=== PATIENT | male | born 1935 | race Caucasian/White ===

== ENCOUNTER → 2020-01-26 | Outpatient (CLI) | payer MEDICARE | END | disposition home or self-care (01) | LOC: CVU 08:39 | PROVIDERS: ATTEND Family Medicine | DX: I08.0 Rheumatic disorders of both mitral and aortic valves (principal); R01.1 Cardiac murmur, unspecified | CPT/HCPCS: 93306 ==

== ENCOUNTER → 2020-12-25 | Outpatient (CLI) | payer MEDICARE | END | disposition home or self-care (01) | LOC: CVU 10:01 | PROVIDERS: ATTEND Family Medicine | DX: I08.2 Rheumatic disorders of both aortic and tricuspid valves (principal); R73.03 Prediabetes; I50.9 Heart failure, unspecified | CPT/HCPCS: 93306; 93356 ==

== ENCOUNTER 2021-01-10 07:29 | Day surgery (SDC) | payer MEDICARE ==
[2021-01-10 10:03] LABS: MEAN CORPUSCULAR HEMOGLOBIN 36.6 pg (27.5-34.5); MEAN CORPUSCULAR HGB CONC 32.7 g/dL (33.2-36.2); MEAN PLATELET VOLUME 11.1 fL (7.4-10.4); PLATELET COUNT 60 x10^3/uL (130-400); RED BLOOD COUNT 1.97 x10^6/uL (4.38-5.82); RED CELL DISTRIBUTION WIDTH 22.5 % (9.4-14.8)
[2021-01-10] MEDS ORDERED: LIDOCAINE 1%, 10ML ONE (10:11)
[2021-01-10 10:30] LABS: EOS#(MANUAL) 0.04 x10^3/uL (0.0-0.4); EOS% (MANUAL) 3 % (1-7); LYMPH#(MANUAL) 0.78 x10^3/uL (1-3.4); LYMPHS% (MANUAL) 60 % (22-44); MONOS#(MANUAL) 0.08 x10^3/uL (0.3-2.7); MONOS% (MANUAL) 6 % (2-9); SEGS% (MANUAL) 31 % (42-75)
[2021-01-10] MEDS ORDERED: SODIUM CHLORIDE 0.9% 1,000 ML IV SCH (10:30)
[2021-01-10 10:31] LABS: <PLATELET ESTIMATE> DECREASED; ANISOCYTOSIS 2+; HYPOCHROMIA 1+; LARGE PLATELETS 1+; POLYCHROMASIA 1+; TARGET CELLS 1+
[2021-01-10 10:32] LABS: ACANTHOCYTES 1+; ECHINOCYTES 1+; HOWELL-JOLLY BODIES 1+; OVALOCYTES 1+; SCHISTOCYTES 1+
[2021-01-10] MEDS ORDERED: MIDAZOLAM 1 MG/ML, 5ML ONE (10:36)
[2021-01-10] MEDS ORDERED: NALOXONE 1 MG/ML, 2ML ONE (10:36)
[2021-01-10] MEDS ORDERED: FENTANYL PF 100 MCG/2ML ONE (10:36)
[2021-01-10] MEDS ORDERED: FLUMAZENIL 0.1 MG/1 ML, 5ML ONE (10:36)
== END 2021-01-10 13:00 | disposition home or self-care (01) ==
LOC: OUT 07:29
PROVIDERS: ATTEND Radiology Diagnostic Radiology
DX: D64.9 Anemia, unspecified (principal); D75.81 Myelofibrosis; C85.16 Unspecified B-cell lymphoma, intrapelvic lymph nodes; I10 Essential (primary) hypertension; Z88.1 Allergy status to other antibiotic agents; Z88.2 Allergy status to sulfonamides; Z79.899 Other long term (current) drug therapy; Z98.890 Other specified postprocedural states
CPT/HCPCS: 36415; 38222; 77012; 85025; 85060; 85097; 88305; 88311; 88313; 88341; 88342; 88360; 99156; 99157; J2250; J3010; J2310

== ENCOUNTER 2021-01-18 13:25 | Inpatient (IN) | payer MEDICARE ==
[~2021-01-18] VITALS: Ht 177.8 cm; Wt 64.3 kg
[2021-01-18 14:47] LABS: MEAN CORPUSCULAR HEMOGLOBIN 36.9 pg (27.5-34.5); MEAN CORPUSCULAR HGB CONC 33.1 g/dL (33.2-36.2); MEAN PLATELET VOLUME 11.5 fL (7.4-10.4); RED BLOOD COUNT 1.96 x10^6/uL (4.38-5.82); RED CELL DISTRIBUTION WIDTH 22.9 % (9.4-14.8)
[2021-01-18 14:59] LABS: ALBUMIN 2.1 g/dL (3.4-5.0); ANION GAP 9 mmol/L (5-15); CALCIUM 7.8 mg/dL (8.5-10.1); CHLORIDE 103 mmol/L (98-107)
[2021-01-18 15:07] LABS: ALANINE AMINOTRANSFERASE 45 U/L (12-78); ALKALINE PHOSPHATASE 198 U/L (45-117); BILIRUBIN,TOTAL 1.1 mg/dL (0.2-1.0); CREATININE 0.63 mg/dL (0.7-1.3); TOTAL PROTEIN 6.8 g/dL (6.4-8.2); TROPONIN I < 0.015 ng/mL (0.000-0.045)
[2021-01-18 15:18] LABS: PLATELET COUNT 43 x10^3/uL (130-400)
--- NOTE | 2021-01-18 15:21 | NUR ---
NO ANSWER FROM LOBBY. WILL CALL PATIENT AT NUMBER LISTED
--- NOTE | 2021-01-18 16:14 | NUR ---
PT TO ROOM 9 FROM LOBBY
[2021-01-18 16:45] LABS: SEG#(MANUAL) 0.36 x10^3/uL (1.8-6.8); SEGS% (MANUAL) 28 % (42-75)
[2021-01-18 16:46] LABS: BAND#(MANUAL) 0.09 x10^3/uL; BANDS%(MANUAL) 7 % (0-7); EOS#(MANUAL) 0.04 x10^3/uL (0.0-0.4); EOS% (MANUAL) 3 % (1-7); LYMPH#(MANUAL) 0.77 x10^3/uL (1-3.4); LYMPHS% (MANUAL) 59 % (22-44); MONOS#(MANUAL) 0.01 x10^3/uL (0.3-2.7); MONOS% (MANUAL) 1 % (2-9); REACTIVE LYMPHS # (MANUAL) 0.03 x10^3/uL (0-0); REACTIVE LYMPHS % (MANUAL) 2 % (0-0)
[2021-01-18 16:52] LABS: HYPOCHROMIA 1+; POLYCHROMASIA 1+; TARGET CELLS 1+
[2021-01-18 17:00] LABS: OVALOCYTES 1+
[2021-01-18 17:01] LABS: <PLATELET ESTIMATE> DECREASED; SCHISTOCYTES 1+
[2021-01-18 17:02] LABS: <PLT MORPHOLOGY> NORMAL PLT MORPH
[2021-01-18 17:03] LABS: SPHEROCYTES 1+
--- NOTE | 2021-01-18 17:15 | NUR ---
MD Cruz at bedside for admit assessment. MD notified pt initially had low grade fever of 99.9, wbc 1.3. pt meets sirs criteria but has no source as he has not provided urine yet. pt denies cough, denies dysuria, denies n/v/d. pt a&o, resps even and unlabored, nsr on teletypesetter monitor with no ectopy noted. pt to be admitted for onc workup and possible placement d/t debility. report called to receiving onc ANTONINO Mondragon. pt prompted to provide urine sample. supplies at bedside. MD Cruz declines to order sepsis order set at this time as fever was low grade and no source has been identified yet. ANTONINO Mondragon made aware to notify MD if pt meets sepsis criteria or has positive UTI. MD Cruz aware urine sample has not been provided yet.
[2021-01-18] MEDS ORDERED: vitamin b PO (17:19)
[2021-01-18] MEDS ORDERED: metformin PO (17:19)
[2021-01-18] MEDS ORDERED: ATOR20TA37 PO (17:19)
[2021-01-18] MEDS ORDERED: ASPI-963 PO (17:19)
[2021-01-18] MEDS ORDERED: VIT1TABL34 PO (17:19)
[2021-01-18] MEDS ORDERED: SODIUM CHLORIDE NASAL SPRAY 45ML BOTTLE NAS PRN (17:30)
[2021-01-18] MEDS ORDERED: ONDANSETRON ODT 4 MG PO PRN (17:30)
[2021-01-18] MEDS ORDERED: ACETAMINOPHEN 325 MG TABLET PO PRN (17:30)
[2021-01-18] MEDS ORDERED: MELATONIN 5 MG TABLET PO PRN (17:30)
[2021-01-18] MEDS ORDERED: PHARMACY MAY ADJ FOR RENAL FX MC SCH (17:30)
[2021-01-18] MEDS ORDERED: ONDANSETRON 2MG/ML, 2ML IVPush PRN (17:30)
[2021-01-18 18:40] VITALS: BP 128/75
[2021-01-18] MEDS: NS + 20MEQ KCL 1,000 ML IV SCH (20:12)
[2021-01-18] MEDS: ATORVASTATIN 20 MG TABLET PO SCH (20:19)
[2021-01-18 20:51] LABS: MICROSCOPIC INDICATED
[2021-01-19] VITALS (7 sets, daily range): BP systolic 95–159; BP diastolic 55–80
[2021-01-19 07:20] LABS: ALANINE AMINOTRANSFERASE 44 U/L (12-78); ALBUMIN 1.9 g/dL (3.4-5.0); ANION GAP 9 mmol/L (5-15); CALCIUM 7.9 mg/dL (8.5-10.1); CHLORIDE 107 mmol/L (98-107); CREATININE 0.67 mg/dL (0.7-1.3)
[2021-01-19 07:22] LABS: MEAN CORPUSCULAR HEMOGLOBIN 36.6 pg (27.5-34.5); MEAN CORPUSCULAR HGB CONC 32.6 g/dL (33.2-36.2); MEAN PLATELET VOLUME 10.9 fL (7.4-10.4); RED BLOOD COUNT 1.89 x10^6/uL (4.38-5.82); RED CELL DISTRIBUTION WIDTH 23.4 % (9.4-14.8)
[2021-01-19 07:23] LABS: ALKALINE PHOSPHATASE 221 U/L (45-117); TOTAL PROTEIN 6.2 g/dL (6.4-8.2)
[2021-01-19 07:25] LABS: PLATELET COUNT 39 x10^3/uL (130-400)
[2021-01-19 07:58] LABS: ANISOCYTOSIS 2+; BAND#(MANUAL) 0.01 x10^3/uL; BANDS%(MANUAL) 1 % (0-7); EOS#(MANUAL) 0.04 x10^3/uL (0.0-0.4); EOS% (MANUAL) 3 % (1-7); HYPOCHROMIA 1+; LYMPH#(MANUAL) 0.67 x10^3/uL (1-3.4); LYMPHS% (MANUAL) 56 % (22-44); MONOS#(MANUAL) 0.01 x10^3/uL (0.3-2.7); MONOS% (MANUAL) 1 % (2-9); POLYCHROMASIA 1+; SEG#(MANUAL) 0.47 x10^3/uL (1.8-6.8); SEGS% (MANUAL) 39 % (42-75)
[2021-01-19 07:59] LABS: <PLATELET ESTIMATE> DECREASED; ACANTHOCYTES 1+; ECHINOCYTES 1+; LARGE PLATELETS 1+; TARGET CELLS 1+
[2021-01-19 08:00] LABS: HOWELL-JOLLY BODIES 1+
[2021-01-19 08:02] LABS: SCHISTOCYTES 1+
[2021-01-19 08:42] LABS: ABSOLUTE RETICS # 0.023 x10^6/uL (0.5-1.5); RED BLOOD COUNT 1.82 x10^6/uL (4.38-5.82); RETICULOCYTE COUNT % 1.25 % (0.5-1.5)
[2021-01-19] MEDS: NS + 20MEQ KCL 1,000 ML IV SCH (13:20)
[2021-01-19 16:00] LABS: OCCULT BLOOD POSITIVE (NEGATIVE)
[2021-01-19] MEDS: ATORVASTATIN 20 MG TABLET PO SCH (21:26)
[2021-01-20 00:49] VITALS: BP 120/65
[2021-01-20 05:34] LABS: MEAN CORPUSCULAR HEMOGLOBIN 36.2 pg (27.5-34.5); MEAN CORPUSCULAR HGB CONC 33.8 g/dL (33.2-36.2); MEAN PLATELET VOLUME 11.2 fL (7.4-10.4); RED CELL DISTRIBUTION WIDTH 25.1 % (9.4-14.8)
[2021-01-20 05:37] LABS: ANION GAP 7 mmol/L (5-15); CALCIUM 7.2 mg/dL (8.5-10.1); CHLORIDE 108 mmol/L (98-107); PLATELET COUNT 35 x10^3/uL (130-400)
[2021-01-20 06:08] LABS: SEGS% (MANUAL) 42 % (42-75)
[2021-01-20 06:10] LABS: ANISOCYTOSIS 2+; BAND#(MANUAL) 0.01 x10^3/uL; BANDS%(MANUAL) 1 % (0-7); ECHINOCYTES 1+; HYPOCHROMIA 1+; LYMPH#(MANUAL) 0.68 x10^3/uL (1-3.4); LYMPHS% (MANUAL) 57 % (22-44); POLYCHROMASIA 1+
[2021-01-20 06:11] LABS: <PLATELET ESTIMATE> DECREASED; ACANTHOCYTES 1+; LARGE PLATELETS 1+; SCHISTOCYTES 1+; TARGET CELLS 1+
[2021-01-20 06:12] LABS: HOWELL-JOLLY BODIES 1+
[2021-01-20 07:24] VITALS: BP 119/64
[2021-01-20] MEDS: NS + 20MEQ KCL 1,000 ML IV SCH (07:35)
[2021-01-20 12:05] VITALS: BP 133/69
[2021-01-20] MEDS ORDERED: VANCOMYCIN PER PHARMACY MC PRN (19:00)
[2021-01-20 19:15] VITALS: BP 144/70
[2021-01-20 19:16] VITALS: BP 133/69
[2021-01-20 19:27] LABS: INTERNATIONAL NORMALIZED RATIO 1.24 (0.93-1.1); PROTHROMBIN TIME 13.2 Seconds (9.6-11.5)
[2021-01-20 19:29] VITALS: BP 119/66
[2021-01-20] MEDS ORDERED: PHARMACOKINETIC MONITORING MC PRN (19:30)
[2021-01-20] MEDS: PIPERACILLIN/TAZO 3.375 GM in DEXTROSE 5% 50 ML IV SCH (20:05)
[2021-01-20 20:22] LABS: MICROSCOPIC INDICATED
[2021-01-20] MEDS: VANCOMYCIN 1,400 MG in SODIUM CHLORIDE 0.9% 250 ML IV SCH (20:48)
[2021-01-20] MEDS: ATORVASTATIN 20 MG TABLET PO SCH (21:31)
[2021-01-21] MEDS: PIPERACILLIN/TAZO 3.375 GM in DEXTROSE 5% 50 ML IV SCH ×4 (02:22→20:14)
[2021-01-21 02:24] VITALS: BP 137/72
[2021-01-21 04:57] LABS: % IRON SATURATION 47 % (20-55); IRON LEVEL 51 mcg/dL (65-175); TOTAL IRON BINDING CAPACITY 109 mcg/dL (250-450)
[2021-01-21 05:09] LABS: MEAN CORPUSCULAR HEMOGLOBIN 35.9 pg (27.5-34.5); MEAN CORPUSCULAR HGB CONC 32.9 g/dL (33.2-36.2); MEAN PLATELET VOLUME 10.9 fL (7.4-10.4); RED BLOOD COUNT 2.07 x10^6/uL (4.38-5.82); RED CELL DISTRIBUTION WIDTH 25.5 % (9.4-14.8)
[2021-01-21 05:16] LABS: PLATELET COUNT 33 x10^3/uL (130-400)
[2021-01-21 05:50] LABS: ANISOCYTOSIS 2+; BAND#(MANUAL) 0.01 x10^3/uL; BANDS%(MANUAL) 1 % (0-7); EOS#(MANUAL) 0.01 x10^3/uL (0.0-0.4); EOS% (MANUAL) 1 % (1-7); HYPOCHROMIA 1+; LYMPH#(MANUAL) 0.78 x10^3/uL (1-3.4); LYMPHS% (MANUAL) 65 % (22-44); SEGS% (MANUAL) 33 % (42-75)
[2021-01-21 05:51] LABS: <PLATELET ESTIMATE> DECREASED; ACANTHOCYTES 1+; ECHINOCYTES 1+; HOWELL-JOLLY BODIES 1+; POLYCHROMASIA 1+; SCHISTOCYTES 1+; TARGET CELLS 1+
[2021-01-21 05:52] LABS: LARGE PLATELETS 1+
[2021-01-21 06:19] VITALS: BP 105/63
[2021-01-21 12:28] VITALS: BP 134/74
[2021-01-21] MEDS: VANCOMYCIN 1,400 MG in SODIUM CHLORIDE 0.9% 250 ML IV SCH (14:27)
[2021-01-21 19:01] VITALS: BP 118/68
[2021-01-21] MEDS: ATORVASTATIN 20 MG TABLET PO SCH (20:19)
[2021-01-22 01:33] VITALS: BP 135/72
[2021-01-22] MEDS: PIPERACILLIN/TAZO 3.375 GM in DEXTROSE 5% 50 ML IV SCH ×4 (02:19→22:08)
[2021-01-22 05:23] LABS: MEAN CORPUSCULAR HEMOGLOBIN 36.5 pg (27.5-34.5); MEAN CORPUSCULAR HGB CONC 33.6 g/dL (33.2-36.2); MEAN PLATELET VOLUME 11.1 fL (7.4-10.4); RED BLOOD COUNT 1.99 x10^6/uL (4.38-5.82); RED CELL DISTRIBUTION WIDTH 23.9 % (9.4-14.8)
[2021-01-22 05:29] LABS: ALBUMIN 1.7 g/dL (3.4-5.0); ANION GAP 7 mmol/L (5-15); CALCIUM 7.3 mg/dL (8.5-10.1); CHLORIDE 106 mmol/L (98-107)
[2021-01-22 05:30] LABS: PLATELET COUNT 30 x10^3/uL (130-400)
[2021-01-22 05:32] LABS: ALANINE AMINOTRANSFERASE 63 U/L (12-78); ALKALINE PHOSPHATASE 216 U/L (45-117); CREATININE 0.62 mg/dL (0.7-1.3); TOTAL PROTEIN 5.6 g/dL (6.4-8.2)
[2021-01-22 05:53] LABS: BAND#(MANUAL) 0.03 x10^3/uL; BANDS%(MANUAL) 2 % (0-7); EOS#(MANUAL) 0.02 x10^3/uL (0.0-0.4); EOS% (MANUAL) 1 % (1-7); LYMPH#(MANUAL) 1.01 x10^3/uL (1-3.4); LYMPHS% (MANUAL) 67 % (22-44); MONOS#(MANUAL) 0.02 x10^3/uL (0.3-2.7); MONOS% (MANUAL) 1 % (2-9); SEG#(MANUAL) 0.44 x10^3/uL (1.8-6.8); SEGS% (MANUAL) 29 % (42-75)
[2021-01-22 05:54] LABS: ANISOCYTOSIS 2+; HYPOCHROMIA 1+
[2021-01-22 05:55] LABS: ACANTHOCYTES 1+; ECHINOCYTES 1+; OVALOCYTES 1+; SCHISTOCYTES 1+; TARGET CELLS 1+
[2021-01-22 05:56] LABS: <PLATELET ESTIMATE> DECREASED; HOWELL-JOLLY BODIES 1+; POLYCHROMASIA 1+
[2021-01-22 05:57] LABS: LARGE PLATELETS 1+
[2021-01-22 06:18] VITALS: BP 111/57
[2021-01-22] MEDS: VANCOMYCIN 1,400 MG in SODIUM CHLORIDE 0.9% 250 ML IV SCH ×2 (07:24→07:36)
[2021-01-22] MEDS: FAMOTIDINE 20 MG TABLET PO SCH (09:06)
[2021-01-22] MEDS: ONDANSETRON 8 MG TABLET PO SCH (09:06)
[2021-01-22] MEDS: ALLOPURINOL 300 MG TABLET PO SCH (09:06)
[2021-01-22] MEDS: FILTER 0.22 MICRON IV SCH (10:47)
[2021-01-22] MEDS: SODIUM CHLORIDE 0.9% IV SCH (10:49)
[2021-01-22] MEDS: CLADRIBINE IV SCH (10:49)
[2021-01-22 13:01] VITALS: BP 121/70
[2021-01-22 19:03] VITALS: BP 115/65
[2021-01-22] MEDS: ATORVASTATIN 20 MG TABLET PO SCH (20:58)
[2021-01-23] VITALS (7 sets, daily range): BP systolic 105–138; BP diastolic 58–77
[2021-01-23] MEDS: VANCOMYCIN 1,400 MG in SODIUM CHLORIDE 0.9% 250 ML IV SCH (01:31)
[2021-01-23] MEDS: PIPERACILLIN/TAZO 3.375 GM in DEXTROSE 5% 50 ML IV SCH ×4 (04:00→22:06)
[2021-01-23 05:01] LABS: MEAN CORPUSCULAR HEMOGLOBIN 36.3 pg (27.5-34.5); MEAN CORPUSCULAR HGB CONC 32.9 g/dL (33.2-36.2); MEAN PLATELET VOLUME 11.2 fL (7.4-10.4); RED BLOOD COUNT 1.85 x10^6/uL (4.38-5.82); RED CELL DISTRIBUTION WIDTH 25.2 % (9.4-14.8)
[2021-01-23 05:09] LABS: ALBUMIN 1.5 g/dL (3.4-5.0); ANION GAP 8 mmol/L (5-15); CALCIUM 7.2 mg/dL (8.5-10.1); CHLORIDE 105 mmol/L (98-107)
[2021-01-23 05:15] LABS: ALANINE AMINOTRANSFERASE 61 U/L (12-78); ALKALINE PHOSPHATASE 230 U/L (45-117); BILIRUBIN,TOTAL 0.6 mg/dL (0.2-1.0); CREATININE 0.71 mg/dL (0.7-1.3); PLATELET COUNT 32 x10^3/uL (130-400); TOTAL PROTEIN 5.3 g/dL (6.4-8.2)
[2021-01-23 05:57] LABS: EOS#(MANUAL) 0.04 x10^3/uL (0.0-0.4); EOS% (MANUAL) 3 % (1-7); LYMPH#(MANUAL) 0.76 x10^3/uL (1-3.4); LYMPHS% (MANUAL) 63 % (22-44); MONOS#(MANUAL) 0.01 x10^3/uL (0.3-2.7); MONOS% (MANUAL) 1 % (2-9); SEGS% (MANUAL) 33 % (42-75)
[2021-01-23 05:59] LABS: <PLATELET ESTIMATE> DECREASED; ANISOCYTOSIS 2+; ECHINOCYTES 1+; HOWELL-JOLLY BODIES 1+; HYPOCHROMIA 1+; OVALOCYTES 1+; POLYCHROMASIA 1+; SCHISTOCYTES 1+; TARGET CELLS 1+
[2021-01-23 06:00] LABS: ACANTHOCYTES 1+; LARGE PLATELETS 1+
[2021-01-23] MEDS: ALLOPURINOL 300 MG TABLET PO SCH (07:42)
[2021-01-23] MEDS: ONDANSETRON 8 MG TABLET PO SCH (07:42)
[2021-01-23] MEDS: FAMOTIDINE 20 MG TABLET PO SCH (07:42)
[2021-01-23] MEDS ORDERED: VANCOMYCIN 1,300 MG in SODIUM CHLORIDE 0.9% 250 ML IV SCH (08:30)
[2021-01-23] MEDS: CALCIUM/VITAMIN D3 250-125 TABLET PO SCH ×2 (09:59→21:00)
[2021-01-23] MEDS: SODIUM CHLORIDE 0.9% IV SCH (11:12)
[2021-01-23] MEDS: CLADRIBINE IV SCH (11:12)
[2021-01-23] MEDS: FILTER 0.22 MICRON IV SCH (11:13)
[2021-01-23] MEDS: VANCOMYCIN 1,300 MG in SODIUM CHLORIDE 0.9% 250 ML IV SCH (13:22)
[2021-01-23] MEDS: ATORVASTATIN 20 MG TABLET PO SCH (22:05)
[2021-01-24] MEDS: VANCOMYCIN 1,300 MG in SODIUM CHLORIDE 0.9% 250 ML IV SCH ×2 (00:41→14:25)
[2021-01-24 00:48] VITALS: BP 110/62
[2021-01-24] MEDS: PIPERACILLIN/TAZO 3.375 GM in DEXTROSE 5% 50 ML IV SCH ×4 (04:10→21:43)
[2021-01-24 05:58] LABS: MEAN CORPUSCULAR HEMOGLOBIN 35.4 pg (27.5-34.5); MEAN CORPUSCULAR HGB CONC 33.7 g/dL (33.2-36.2); MEAN PLATELET VOLUME 10.8 fL (7.4-10.4); RED BLOOD COUNT 2.02 x10^6/uL (4.38-5.82); RED CELL DISTRIBUTION WIDTH 26.6 % (9.4-14.8)
[2021-01-24 06:00] LABS: PLATELET COUNT 29 x10^3/uL (130-400)
[2021-01-24 06:11] LABS: ALANINE AMINOTRANSFERASE 75 U/L (12-78); ALBUMIN 1.5 g/dL (3.4-5.0); ANION GAP 7 mmol/L (5-15); CALCIUM 7.4 mg/dL (8.5-10.1); CHLORIDE 105 mmol/L (98-107); CREATININE 0.69 mg/dL (0.7-1.3)
[2021-01-24 06:13] LABS: ALKALINE PHOSPHATASE 259 U/L (45-117); BILIRUBIN,TOTAL 0.9 mg/dL (0.2-1.0); TOTAL PROTEIN 5.3 g/dL (6.4-8.2)
[2021-01-24 06:56] LABS: ACANTHOCYTES 1+; ANISOCYTOSIS 2+; ECHINOCYTES 1+; EOS#(MANUAL) 0.01 x10^3/uL (0.0-0.4); EOS% (MANUAL) 1 % (1-7); HYPOCHROMIA 1+; LYMPH#(MANUAL) 0.53 x10^3/uL (1-3.4); LYMPHS% (MANUAL) 66 % (22-44); MONOS#(MANUAL) 0.01 x10^3/uL (0.3-2.7); MONOS% (MANUAL) 1 % (2-9); OVALOCYTES 1+; POLYCHROMASIA 1+; SEG#(MANUAL) 0.26 x10^3/uL (1.8-6.8); SEGS% (MANUAL) 32 % (42-75)
[2021-01-24 06:57] LABS: SCHISTOCYTES 1+; TARGET CELLS 1+
[2021-01-24 06:59] LABS: <PLATELET ESTIMATE> DECREASED; LARGE PLATELETS 1+
[2021-01-24 07:48] VITALS: BP 132/72
[2021-01-24] MEDS: ONDANSETRON 8 MG TABLET PO SCH (08:32)
[2021-01-24] MEDS: CALCIUM/VITAMIN D3 250-125 TABLET PO SCH ×2 (08:32→20:14)
[2021-01-24] MEDS: FAMOTIDINE 20 MG TABLET PO SCH (08:32)
[2021-01-24] MEDS: ALLOPURINOL 300 MG TABLET PO SCH (08:32)
[2021-01-24] MEDS: FILTER 0.22 MICRON IV SCH (11:44)
[2021-01-24] MEDS: SODIUM CHLORIDE 0.9% IV SCH (11:48)
[2021-01-24] MEDS: CLADRIBINE IV SCH (11:48)
[2021-01-24 13:29] VITALS: BP 127/79
[2021-01-24 19:09] VITALS: BP 148/66
[2021-01-24] MEDS: ACYCLOVIR 200 MG CAPSULE PO SCH (20:13)
[2021-01-24] MEDS: ATORVASTATIN 20 MG TABLET PO SCH (20:14)
[2021-01-24] MEDS: FLUCONAZOLE 100 MG TABLET PO SCH (20:14)
[2021-01-25] VITALS (7 sets, daily range): BP systolic 94–124; BP diastolic 55–83
[2021-01-25] MEDS: VANCOMYCIN 1,300 MG in SODIUM CHLORIDE 0.9% 250 ML IV SCH ×2 (01:59→14:14)
[2021-01-25] MEDS: PIPERACILLIN/TAZO 3.375 GM in DEXTROSE 5% 50 ML IV SCH ×4 (03:39→22:14)
[2021-01-25 06:11] LABS: MEAN CORPUSCULAR HEMOGLOBIN 35.2 pg (27.5-34.5); MEAN CORPUSCULAR HGB CONC 33.2 g/dL (33.2-36.2); MEAN PLATELET VOLUME 10.7 fL (7.4-10.4); RED BLOOD COUNT 1.95 x10^6/uL (4.38-5.82); RED CELL DISTRIBUTION WIDTH 25.7 % (9.4-14.8)
[2021-01-25 06:20] LABS: ALANINE AMINOTRANSFERASE 70 U/L (12-78); ALBUMIN 1.5 g/dL (3.4-5.0); ANION GAP 8 mmol/L (5-15); CALCIUM 7.3 mg/dL (8.5-10.1); CHLORIDE 103 mmol/L (98-107); CREATININE 0.64 mg/dL (0.7-1.3)
[2021-01-25 06:22] LABS: ALKALINE PHOSPHATASE 241 U/L (45-117); BILIRUBIN,TOTAL 0.8 mg/dL (0.2-1.0); TOTAL PROTEIN 5.2 g/dL (6.4-8.2)
[2021-01-25 06:58] LABS: PLATELET COUNT 29 x10^3/uL (130-400)
[2021-01-25 07:02] LABS: ANISOCYTOSIS 2+; EOS#(MANUAL) 0.02 x10^3/uL (0.0-0.4); EOS% (MANUAL) 4 % (1-7); LYMPH#(MANUAL) 0.35 x10^3/uL (1-3.4); LYMPHS% (MANUAL) 69 % (22-44); MONOS#(MANUAL) 0.01 x10^3/uL (0.3-2.7); MONOS% (MANUAL) 1 % (2-9); SEG#(MANUAL) 0.13 x10^3/uL (1.8-6.8); SEGS% (MANUAL) 26 % (42-75)
[2021-01-25 07:03] LABS: ACANTHOCYTES 1+; ECHINOCYTES 1+; HYPOCHROMIA 1+; OVALOCYTES 1+; POLYCHROMASIA 1+; SCHISTOCYTES 1+; TARGET CELLS 1+
[2021-01-25 07:04] LABS: HOWELL-JOLLY BODIES 1+
[2021-01-25 07:05] LABS: <PLATELET ESTIMATE> DECREASED; LARGE PLATELETS 1+
[2021-01-25] MEDS: ACETAMINOPHEN 325 MG TABLET PO PRN (08:11)
[2021-01-25] MEDS: ACYCLOVIR 200 MG CAPSULE PO SCH ×2 (08:20→21:37)
[2021-01-25] MEDS: ONDANSETRON 8 MG TABLET PO SCH (08:20)
[2021-01-25] MEDS: ALLOPURINOL 300 MG TABLET PO SCH (08:20)
[2021-01-25] MEDS: FLUCONAZOLE 100 MG TABLET PO SCH ×2 (08:20→21:37)
[2021-01-25] MEDS: FAMOTIDINE 20 MG TABLET PO SCH (08:20)
[2021-01-25] MEDS: CALCIUM/VITAMIN D3 250-125 TABLET PO SCH ×2 (08:20→21:00)
[2021-01-25] MEDS: FILTER 0.22 MICRON IV SCH (10:00)
[2021-01-25] MEDS: SODIUM CHLORIDE 0.9% IV SCH (11:32)
[2021-01-25] MEDS: CLADRIBINE IV SCH (11:32)
[2021-01-25] MEDS: ATORVASTATIN 20 MG TABLET PO SCH (21:37)
[2021-01-25] MEDS: SENNA/DOCUSATE TABLET PO SCH (21:38)
[2021-01-26 00:49] VITALS: BP 100/60
[2021-01-26] MEDS: PIPERACILLIN/TAZO 3.375 GM in DEXTROSE 5% 50 ML IV SCH ×2 (03:50→09:52)
[2021-01-26 06:10] LABS: ALBUMIN 1.5 g/dL (3.4-5.0); ANION GAP 8 mmol/L (5-15); BASOPHILS % (AUTO) 0 % (0-1); CHLORIDE 104 mmol/L (98-107); EOSINOPHILS % (AUTO) 8 % (1-7); LYMPHOCYTES % (AUTO) 53 % (22-44); MEAN CORPUSCULAR HEMOGLOBIN 34.3 pg (27.5-34.5); MEAN CORPUSCULAR HGB CONC 33.9 g/dL (33.2-36.2); MEAN PLATELET VOLUME 11.1 fL (7.4-10.4); MONOCYTES % (AUTO) 8 % (2-9); NEUTROPHILS % (AUTO) 31 % (42-75); RED BLOOD COUNT 2.28 x10^6/uL (4.38-5.82)
[2021-01-26 06:13] LABS: ALANINE AMINOTRANSFERASE 69 U/L (12-78); ALKALINE PHOSPHATASE 252 U/L (45-117); CREATININE 0.73 mg/dL (0.7-1.3); TOTAL PROTEIN 5.3 g/dL (6.4-8.2)
[2021-01-26 06:14] LABS: PLATELET COUNT 28 x10^3/uL (130-400)
[2021-01-26 06:34] VITALS: BP 111/61
[2021-01-26 07:06] LABS: BAND#(MANUAL) 0.02 x10^3/uL; BANDS%(MANUAL) 8 % (0-7); SEGS% (MANUAL) 32 % (42-75)
[2021-01-26 07:07] LABS: BASOS% (MANUAL) 1 % (0-1); EOS#(MANUAL) 0.01 x10^3/uL (0.0-0.4); EOS% (MANUAL) 3 % (1-7); LYMPH#(MANUAL) 0.17 x10^3/uL (1-3.4); LYMPHS% (MANUAL) 56 % (22-44)
[2021-01-26 07:08] LABS: ANISOCYTOSIS 2+; HYPOCHROMIA 1+; POLYCHROMASIA 1+
[2021-01-26 07:09] LABS: ACANTHOCYTES 1+; ECHINOCYTES 1+; OVALOCYTES 1+; SCHISTOCYTES 1+; TARGET CELLS 1+
[2021-01-26 07:10] LABS: <PLATELET ESTIMATE> DECREASED; LARGE PLATELETS 1+
[2021-01-26] MEDS ORDERED: VANCOMYCIN 1,500 MG in SODIUM CHLORIDE 0.9% 250 ML IV SCH (08:00)
[2021-01-26] MEDS: FLUCONAZOLE 100 MG TABLET PO SCH ×2 (08:31→21:41)
[2021-01-26] MEDS: CALCIUM/VITAMIN D3 250-125 TABLET PO SCH ×2 (08:32→21:42)
[2021-01-26] MEDS: ONDANSETRON 8 MG TABLET PO SCH (08:32)
[2021-01-26] MEDS: ALLOPURINOL 300 MG TABLET PO SCH (08:32)
[2021-01-26] MEDS: FAMOTIDINE 20 MG TABLET PO SCH (08:32)
[2021-01-26] MEDS: ACYCLOVIR 200 MG CAPSULE PO SCH ×2 (08:32→21:42)
[2021-01-26] MEDS: FILTER 0.22 MICRON IV SCH (11:14)
[2021-01-26] MEDS: SODIUM CHLORIDE 0.9% IV SCH (11:15)
[2021-01-26] MEDS: CLADRIBINE IV SCH (11:15)
[2021-01-26 12:05] VITALS: BP 111/55
[2021-01-26 18:58] VITALS: BP 129/71
[2021-01-26] MEDS: SENNA/DOCUSATE TABLET PO SCH (21:41)
[2021-01-26] MEDS: ATORVASTATIN 20 MG TABLET PO SCH (21:41)
[2021-01-27 01:51] VITALS: BP 129/71
[2021-01-27 05:45] LABS: MEAN CORPUSCULAR HEMOGLOBIN 34.7 pg (27.5-34.5); MEAN CORPUSCULAR HGB CONC 34.2 g/dL (33.2-36.2); MEAN PLATELET VOLUME 10.9 fL (7.4-10.4); RED BLOOD COUNT 2.31 x10^6/uL (4.38-5.82); RED CELL DISTRIBUTION WIDTH 24.7 % (9.4-14.8)
[2021-01-27 05:55] LABS: PLATELET COUNT 30 x10^3/uL (130-400)
[2021-01-27 05:59] LABS: ALANINE AMINOTRANSFERASE 61 U/L (12-78); ALBUMIN 1.5 g/dL (3.4-5.0); ANION GAP 8 mmol/L (5-15); CALCIUM 7.3 mg/dL (8.5-10.1); CHLORIDE 101 mmol/L (98-107); CREATININE 0.77 mg/dL (0.7-1.3)
[2021-01-27 06:01] LABS: ALKALINE PHOSPHATASE 276 U/L (45-117); BILIRUBIN,TOTAL 0.7 mg/dL (0.2-1.0); TOTAL PROTEIN 5.5 g/dL (6.4-8.2)
[2021-01-27 06:38] LABS: BAND#(MANUAL) 0.01 x10^3/uL; BANDS%(MANUAL) 3 % (0-7); EOS#(MANUAL) 0.01 x10^3/uL (0.0-0.4); EOS% (MANUAL) 6 % (1-7); LYMPH#(MANUAL) 0.12 x10^3/uL (1-3.4); LYMPHS% (MANUAL) 59 % (22-44); REACTIVE LYMPHS % (MANUAL) 1 % (0-0); SEG#(MANUAL) 0.06 x10^3/uL (1.8-6.8); SEGS% (MANUAL) 31 % (42-75)
[2021-01-27 06:40] LABS: TARGET CELLS 1+
[2021-01-27 06:41] LABS: <PLATELET ESTIMATE> DECREASED; ACANTHOCYTES 1+; ANISOCYTOSIS 2+; ECHINOCYTES 1+; HOWELL-JOLLY BODIES 1+; HYPOCHROMIA 1+; LARGE PLATELETS 1+; OVALOCYTES 1+
[2021-01-27 06:42] LABS: POLYCHROMASIA 1+; SCHISTOCYTES 1+
[2021-01-27 08:55] VITALS: BP 125/62
[2021-01-27] MEDS: FLUCONAZOLE 100 MG TABLET PO SCH ×2 (09:32→20:07)
[2021-01-27] MEDS: ACYCLOVIR 200 MG CAPSULE PO SCH ×2 (09:32→20:07)
[2021-01-27] MEDS: LEVOFLOXACIN 500 MG TABLET PO SCH (09:32)
[2021-01-27] MEDS: ALLOPURINOL 300 MG TABLET PO SCH (09:32)
[2021-01-27] MEDS: CALCIUM/VITAMIN D3 250-125 TABLET PO SCH ×2 (09:33→20:08)
[2021-01-27 12:56] VITALS: BP 145/72
[2021-01-27] MEDS ORDERED: GLYCERIN ADULT SUPP PR ONE (17:00)
[2021-01-27] MEDS ORDERED: GLYCERIN ADULT SUPP PR PRN (17:30)
[2021-01-27 18:43] VITALS: BP 160/89
[2021-01-27] MEDS: ATORVASTATIN 20 MG TABLET PO SCH (20:06)
[2021-01-27] MEDS: SENNA/DOCUSATE TABLET PO SCH (20:07)
[2021-01-28 04:05] VITALS: BP 136/79
[2021-01-28 06:00] LABS: MEAN CORPUSCULAR HEMOGLOBIN 34.6 pg (27.5-34.5); MEAN CORPUSCULAR HGB CONC 33.9 g/dL (33.2-36.2); MEAN PLATELET VOLUME 11.1 fL (7.4-10.4); RED BLOOD COUNT 2.49 x10^6/uL (4.38-5.82)
[2021-01-28 06:06] LABS: CHLORIDE 100 mmol/L (98-107)
[2021-01-28 06:15] LABS: ALANINE AMINOTRANSFERASE 57 U/L (12-78); ALBUMIN 1.6 g/dL (3.4-5.0); ALKALINE PHOSPHATASE 272 U/L (45-117); ANION GAP 6 mmol/L (5-15); BILIRUBIN,TOTAL 1.1 mg/dL (0.2-1.0); CALCIUM 7.8 mg/dL (8.5-10.1); CREATININE 0.52 mg/dL (0.7-1.3); TOTAL PROTEIN 5.9 g/dL (6.4-8.2)
[2021-01-28 06:36] LABS: PLATELET COUNT 28 x10^3/uL (130-400)
[2021-01-28 06:58] LABS: BANDS%(MANUAL) 1 % (0-7); EOS#(MANUAL) 0.01 x10^3/uL (0.0-0.4); EOS% (MANUAL) 5 % (1-7); LYMPH#(MANUAL) 0.06 x10^3/uL (1-3.4); LYMPHS% (MANUAL) 57 % (22-44); MONOS% (MANUAL) 2 % (2-9); SEG#(MANUAL) 0.04 x10^3/uL (1.8-6.8); SEGS% (MANUAL) 35 % (42-75)
[2021-01-28 07:00] LABS: ACANTHOCYTES 1+; ANISOCYTOSIS 2+; ECHINOCYTES 1+; HYPOCHROMIA 1+; OVALOCYTES 1+; POLYCHROMASIA 1+; TARGET CELLS 1+
[2021-01-28 07:01] LABS: <PLATELET ESTIMATE> DECREASED; HOWELL-JOLLY BODIES 1+
[2021-01-28 07:02] LABS: LARGE PLATELETS 1+; MICROCYTOSIS 1+
[2021-01-28 08:28] VITALS: BP 145/75
[2021-01-28] MEDS: CALCIUM/VITAMIN D3 250-125 TABLET PO SCH ×2 (09:00→23:17)
[2021-01-28] MEDS: LEVOFLOXACIN 500 MG TABLET PO SCH (09:18)
[2021-01-28] MEDS: FLUCONAZOLE 100 MG TABLET PO SCH ×2 (09:18→23:16)
[2021-01-28] MEDS: ALLOPURINOL 300 MG TABLET PO SCH (09:18)
[2021-01-28] MEDS: ACYCLOVIR 200 MG CAPSULE PO SCH ×2 (09:18→23:15)
[2021-01-28 13:45] VITALS: BP 149/84
[2021-01-28 19:24] VITALS: BP 133/88
[2021-01-28 20:22] VITALS: BP 148/77
[2021-01-28] MEDS ORDERED: FLUCONAZOLE 200 MG TABLET ONE (23:02)
[2021-01-28] MEDS: METOPROLOL TARTRATE 25 MG TAB PO SCH (23:15)
[2021-01-28] MEDS: ATORVASTATIN 20 MG TABLET PO SCH (23:15)
[2021-01-28] MEDS: SENNA/DOCUSATE TABLET PO SCH (23:15)
[2021-01-28 23:40] VITALS: BP 149/84
[2021-01-29 05:34] VITALS: BP 156/76
[2021-01-29] MEDS: METOPROLOL TARTRATE 25 MG TAB PO SCH (05:36)
[2021-01-29 06:10] LABS: ALBUMIN 1.6 g/dL (3.4-5.0); ANION GAP 5 mmol/L (5-15); CALCIUM 7.6 mg/dL (8.5-10.1); CHLORIDE 101 mmol/L (98-107)
[2021-01-29 06:12] LABS: MEAN CORPUSCULAR HEMOGLOBIN 34.7 pg (27.5-34.5); MEAN CORPUSCULAR HGB CONC 34.2 g/dL (33.2-36.2); MEAN PLATELET VOLUME 10.1 fL (7.4-10.4); RED BLOOD COUNT 2.49 x10^6/uL (4.38-5.82)
[2021-01-29 06:13] LABS: ALANINE AMINOTRANSFERASE 52 U/L (12-78); ALKALINE PHOSPHATASE 267 U/L (45-117); BILIRUBIN,TOTAL 1.2 mg/dL (0.2-1.0); CREATININE 0.47 mg/dL (0.7-1.3)
[2021-01-29 06:35] VITALS: BP 152/74
[2021-01-29 06:35] LABS: PLATELET COUNT 24 x10^3/uL (130-400)
[2021-01-29 07:41] LABS: BANDS%(MANUAL) 1 % (0-7); EOS% (MANUAL) 3 % (1-7); LYMPH#(MANUAL) 0.07 x10^3/uL (1-3.4); LYMPHS% (MANUAL) 67 % (22-44); MONOS#(MANUAL) 0.01 x10^3/uL (0.3-2.7); MONOS% (MANUAL) 8 % (2-9); SEG#(MANUAL) 0.02 x10^3/uL (1.8-6.8); SEGS% (MANUAL) 21 % (42-75)
[2021-01-29 07:42] LABS: ANISOCYTOSIS 2+; HOWELL-JOLLY BODIES 1+; HYPOCHROMIA 1+; MICROCYTOSIS 1+; OVALOCYTES 1+; POLYCHROMASIA 1+; TARGET CELLS 1+
[2021-01-29 07:43] LABS: <PLATELET ESTIMATE> DECREASED
[2021-01-29 07:44] LABS: SCHISTOCYTES 1+
[2021-01-29 07:45] LABS: LARGE PLATELETS 1+
[2021-01-29] MEDS ORDERED: POTASSIUM CHLORIDE 20 MEQ TAB.ER.PRT PO ONE (09:00)
[2021-01-29] MEDS: CALCIUM/VITAMIN D3 250-125 TABLET PO SCH ×2 (10:01→21:37)
[2021-01-29] MEDS: ACYCLOVIR 200 MG CAPSULE PO SCH ×2 (10:02→21:42)
[2021-01-29] MEDS: FLUCONAZOLE 100 MG TABLET PO SCH ×2 (10:02→21:37)
[2021-01-29] MEDS: CARVEDILOL 6.25 MG TABLET PO SCH ×2 (10:02→17:54)
[2021-01-29] MEDS: ALLOPURINOL 300 MG TABLET PO SCH (10:03)
[2021-01-29] MEDS: LEVOFLOXACIN 500 MG TABLET PO SCH (10:03)
[2021-01-29] MEDS: TBO-FILGRASTIM 480 MCG/0.8 ML SQ SCH (10:04)
[2021-01-29 12:03] VITALS: BP 123/74
[2021-01-29 18:39] VITALS: BP 131/74
[2021-01-29] MEDS ORDERED: FLUCONAZOLE 200 MG TABLET ONE (21:33)
[2021-01-29] MEDS: SENNA/DOCUSATE TABLET PO SCH (21:36)
[2021-01-29] MEDS: ATORVASTATIN 20 MG TABLET PO SCH (21:37)
[2021-01-30] VITALS (10 sets, daily range): BP systolic 113–136; BP diastolic 67–76
[2021-01-30] MEDS: CARVEDILOL 6.25 MG TABLET PO SCH ×2 (05:47→18:37)
[2021-01-30 06:12] LABS: MEAN CORPUSCULAR HEMOGLOBIN 34.7 pg (27.5-34.5); MEAN CORPUSCULAR HGB CONC 34.5 g/dL (33.2-36.2); RED BLOOD COUNT 2.26 x10^6/uL (4.38-5.82); RED CELL DISTRIBUTION WIDTH 24.2 % (9.4-14.8)
[2021-01-30 06:16] LABS: ANION GAP 6 mmol/L (5-15); CALCIUM 7.4 mg/dL (8.5-10.1); CHLORIDE 100 mmol/L (98-107); CREATININE 0.48 mg/dL (0.7-1.3)
[2021-01-30 06:30] LABS: PLATELET COUNT 16 x10^3/uL (130-400)
[2021-01-30 08:00] LABS: SEG#(MANUAL) 0.02 x10^3/uL (1.8-6.8); SEGS% (MANUAL) 17 % (42-75)
[2021-01-30 08:01] LABS: BANDS%(MANUAL) 2 % (0-7); EOS#(MANUAL) 0.01 x10^3/uL (0.0-0.4); EOS% (MANUAL) 7 % (1-7); LYMPH#(MANUAL) 0.06 x10^3/uL (1-3.4); LYMPHS% (MANUAL) 61 % (22-44); MONOS#(MANUAL) 0.01 x10^3/uL (0.3-2.7); MONOS% (MANUAL) 13 % (2-9)
[2021-01-30 08:09] LABS: ANISOCYTOSIS 2+; HYPOCHROMIA 1+; MICROCYTOSIS 1+
[2021-01-30 08:10] LABS: <PLATELET ESTIMATE> DECREASED; LARGE PLATELETS 1+; OVALOCYTES 1+; POLYCHROMASIA 1+; SCHISTOCYTES 1+; TARGET CELLS 1+
[2021-01-30] MEDS: FLUCONAZOLE 100 MG TABLET PO SCH ×2 (08:33→20:55)
[2021-01-30] MEDS: LEVOFLOXACIN 500 MG TABLET PO SCH (08:33)
[2021-01-30] MEDS: ACYCLOVIR 200 MG CAPSULE PO SCH ×2 (08:34→20:54)
[2021-01-30] MEDS: CALCIUM/VITAMIN D3 250-125 TABLET PO SCH ×3 (08:35→21:00)
[2021-01-30] MEDS: ALLOPURINOL 300 MG TABLET PO SCH (08:35)
[2021-01-30] MEDS: TBO-FILGRASTIM 480 MCG/0.8 ML SQ SCH (10:19)
[2021-01-30] MEDS ORDERED: SODIUM CHLORIDE 0.9% 250 ML IV ONE (11:30)
[2021-01-30] MEDS: SENNA/DOCUSATE TABLET PO SCH ×2 (20:55→21:00)
[2021-01-30] MEDS: ATORVASTATIN 20 MG TABLET PO SCH (20:55)
[2021-01-31 01:14] VITALS: BP 132/73
[2021-01-31 05:31] VITALS: BP 121/74
[2021-01-31] MEDS: CARVEDILOL 6.25 MG TABLET PO SCH ×2 (05:32→18:09)
[2021-01-31 06:38] VITALS: BP 122/69
[2021-01-31] MEDS: CALCIUM/VITAMIN D3 250-125 TABLET PO SCH ×2 (09:00→20:06)
[2021-01-31] MEDS: ACYCLOVIR 200 MG CAPSULE PO SCH ×2 (09:00→20:05)
[2021-01-31] MEDS: FLUCONAZOLE 100 MG TABLET PO SCH ×2 (09:00→20:06)
[2021-01-31 10:56] LABS: MEAN CORPUSCULAR HEMOGLOBIN 34.7 pg (27.5-34.5); MEAN CORPUSCULAR HGB CONC 34.5 g/dL (33.2-36.2); MEAN PLATELET VOLUME 9.7 fL (7.4-10.4); RED BLOOD COUNT 2.18 x10^6/uL (4.38-5.82); RED CELL DISTRIBUTION WIDTH 23.4 % (9.4-14.8)
[2021-01-31 11:16] LABS: PLATELET COUNT 41 x10^3/uL (130-400)
[2021-01-31 11:49] LABS: BANDS%(MANUAL) 1 % (0-7); EOS% (MANUAL) 3 % (1-7); LYMPH#(MANUAL) 0.08 x10^3/uL (1-3.4); MONOS% (MANUAL) 4 % (2-9); REACTIVE LYMPHS % (MANUAL) 3 % (0-0); SEG#(MANUAL) 0.01 x10^3/uL (1.8-6.8)
[2021-01-31 11:50] LABS: LYMPHS% (MANUAL) 81 % (22-44); SEGS% (MANUAL) 8 % (42-75)
[2021-01-31 11:53] LABS: ANISOCYTOSIS 2+; HYPOCHROMIA 1+; MICROCYTOSIS 1+; OVALOCYTES 1+; POLYCHROMASIA 1+; SCHISTOCYTES 1+; TARGET CELLS 1+
[2021-01-31 11:54] LABS: <PLATELET ESTIMATE> DECREASED; <PLT MORPHOLOGY> NORMAL PLT MORPH; HOWELL-JOLLY BODIES 1+
[2021-01-31] MEDS: ALLOPURINOL 300 MG TABLET PO SCH (12:14)
[2021-01-31] MEDS: LEVOFLOXACIN 500 MG TABLET PO SCH (12:14)
[2021-01-31] MEDS: TBO-FILGRASTIM 480 MCG/0.8 ML SQ SCH (12:35)
[2021-01-31 13:13] VITALS: BP 128/82
[2021-01-31 18:25] VITALS: BP 117/58
[2021-01-31] MEDS: SENNA/DOCUSATE TABLET PO SCH (20:05)
[2021-01-31] MEDS: ATORVASTATIN 20 MG TABLET PO SCH (20:06)
[2021-02-01 00:23] VITALS: BP 116/72
[2021-02-01] MEDS: CARVEDILOL 6.25 MG TABLET PO SCH ×2 (06:00→18:24)
[2021-02-01 06:22] LABS: MEAN CORPUSCULAR HEMOGLOBIN 34.7 pg (27.5-34.5); MEAN PLATELET VOLUME 9.4 fL (7.4-10.4); RED BLOOD COUNT 2.14 x10^6/uL (4.38-5.82)
[2021-02-01 06:25] LABS: PLATELET COUNT 28 x10^3/uL (130-400)
[2021-02-01 06:31] LABS: ALBUMIN 1.6 g/dL (3.4-5.0); ANION GAP 9 mmol/L (5-15); CALCIUM 7.3 mg/dL (8.5-10.1); CHLORIDE 100 mmol/L (98-107); CREATININE 0.52 mg/dL (0.7-1.3)
[2021-02-01 07:09] LABS: MONOS% (MANUAL) 3 % (2-9); REACTIVE LYMPHS % (MANUAL) 4 % (0-0); SEG#(MANUAL) 0.01 x10^3/uL (1.8-6.8)
[2021-02-01 07:12] VITALS: BP 112/65
[2021-02-01 07:16] LABS: BANDS%(MANUAL) 1 % (0-7); EOS% (MANUAL) 3 % (1-7); LYMPH#(MANUAL) 0.08 x10^3/uL (1-3.4); LYMPHS% (MANUAL) 83 % (22-44); SEGS% (MANUAL) 6 % (42-75)
[2021-02-01 07:19] LABS: ANISOCYTOSIS 2+; HYPOCHROMIA 1+; MICROCYTOSIS 1+; OVALOCYTES 1+
[2021-02-01 07:20] LABS: HOWELL-JOLLY BODIES 1+
[2021-02-01 07:25] LABS: SCHISTOCYTES 1+; TARGET CELLS 1+
[2021-02-01 07:26] LABS: <PLATELET ESTIMATE> DECREASED; <PLT MORPHOLOGY> NORMAL PLT MORPH
[2021-02-01] MEDS: CALCIUM/VITAMIN D3 250-125 TABLET PO SCH ×2 (09:00→21:00)
[2021-02-01] MEDS: ACYCLOVIR 200 MG CAPSULE PO SCH ×2 (10:15→21:00)
[2021-02-01] MEDS: ALLOPURINOL 300 MG TABLET PO SCH (10:15)
[2021-02-01] MEDS: FLUCONAZOLE 100 MG TABLET PO SCH ×2 (10:15→21:00)
[2021-02-01] MEDS: POTASSIUM CHLORIDE 20 MEQ TAB.ER.PRT PO SCH ×2 (10:15→22:34)
[2021-02-01] MEDS: LEVOFLOXACIN 500 MG TABLET PO SCH (10:18)
[2021-02-01] MEDS: TBO-FILGRASTIM 480 MCG/0.8 ML SQ SCH (11:01)
[2021-02-01 13:28] VITALS: BP 129/72
[2021-02-01 18:48] VITALS: BP 149/81
[2021-02-01] MEDS: SENNA/DOCUSATE TABLET PO SCH (21:00)
[2021-02-01] MEDS: ATORVASTATIN 20 MG TABLET PO SCH (21:00)
[2021-02-02] VITALS (7 sets, daily range): BP systolic 118–136; BP diastolic 69–78
[2021-02-02] MEDS: CARVEDILOL 6.25 MG TABLET PO SCH ×2 (06:00→18:00)
[2021-02-02 06:11] LABS: MEAN CORPUSCULAR HEMOGLOBIN 34.6 pg (27.5-34.5); MEAN CORPUSCULAR HGB CONC 33.9 g/dL (33.2-36.2); MEAN PLATELET VOLUME 9.4 fL (7.4-10.4); RED BLOOD COUNT 2.07 x10^6/uL (4.38-5.82); RED CELL DISTRIBUTION WIDTH 24.5 % (9.4-14.8)
[2021-02-02 06:19] LABS: ALBUMIN 1.5 g/dL (3.4-5.0); ANION GAP 6 mmol/L (5-15); CALCIUM 7.2 mg/dL (8.5-10.1); CHLORIDE 102 mmol/L (98-107)
[2021-02-02 06:20] LABS: CREATININE 0.46 mg/dL (0.7-1.3)
[2021-02-02 06:31] LABS: PLATELET COUNT 19 x10^3/uL (130-400)
[2021-02-02 06:55] LABS: EOS% (MANUAL) 4 % (1-7); LYMPH#(MANUAL) 0.08 x10^3/uL (1-3.4); LYMPHS% (MANUAL) 80 % (22-44); MONOS#(MANUAL) 0.01 x10^3/uL (0.3-2.7); MONOS% (MANUAL) 10 % (2-9); SEG#(MANUAL) 0.01 x10^3/uL (1.8-6.8); SEGS% (MANUAL) 6 % (42-75)
[2021-02-02 06:56] LABS: <PLATELET ESTIMATE> DECREASED; <PLT MORPHOLOGY> NORMAL PLT MORPH; ANISOCYTOSIS 2+; HOWELL-JOLLY BODIES 1+; HYPOCHROMIA 1+; MICROCYTOSIS 1+; OVALOCYTES 1+; SCHISTOCYTES 1+; TARGET CELLS 1+
[2021-02-02] MEDS: CALCIUM/VITAMIN D3 250-125 TABLET PO SCH ×2 (09:00→21:00)
[2021-02-02] MEDS: ACYCLOVIR 200 MG CAPSULE PO SCH ×2 (10:12→21:12)
[2021-02-02] MEDS: FLUCONAZOLE 100 MG TABLET PO SCH ×2 (10:13→21:12)
[2021-02-02] MEDS: POTASSIUM CHLORIDE 20 MEQ TAB.ER.PRT PO SCH ×2 (10:13→21:12)
[2021-02-02] MEDS: LEVOFLOXACIN 500 MG TABLET PO SCH (10:13)
[2021-02-02] MEDS: ALLOPURINOL 300 MG TABLET PO SCH (10:13)
[2021-02-02] MEDS: TBO-FILGRASTIM 480 MCG/0.8 ML SQ SCH (10:50)
[2021-02-02] MEDS: ACETAMINOPHEN 325 MG TABLET PO PRN (18:00)
[2021-02-02] MEDS: ATORVASTATIN 20 MG TABLET PO SCH (21:11)
[2021-02-02] MEDS: SENNA/DOCUSATE TABLET PO SCH (21:12)
[2021-02-03 02:20] VITALS: BP 134/88
[2021-02-03] MEDS: CARVEDILOL 6.25 MG TABLET PO SCH ×2 (06:00→18:30)
[2021-02-03 07:11] VITALS: BP 135/72
[2021-02-03] MEDS: FLUCONAZOLE 100 MG TABLET PO SCH ×2 (08:35→22:35)
[2021-02-03] MEDS: POTASSIUM CHLORIDE 20 MEQ TAB.ER.PRT PO SCH ×2 (08:35→22:35)
[2021-02-03] MEDS: ALLOPURINOL 300 MG TABLET PO SCH (08:35)
[2021-02-03] MEDS: LEVOFLOXACIN 500 MG TABLET PO SCH (08:35)
[2021-02-03] MEDS: CALCIUM/VITAMIN D3 250-125 TABLET PO SCH ×2 (08:35→22:36)
[2021-02-03] MEDS: ACYCLOVIR 200 MG CAPSULE PO SCH ×2 (08:36→22:35)
[2021-02-03] MEDS: TBO-FILGRASTIM 480 MCG/0.8 ML SQ SCH (10:36)
[2021-02-03 12:36] VITALS: BP 138/76
[2021-02-03 19:04] VITALS: BP 144/87
[2021-02-03] MEDS: ATORVASTATIN 20 MG TABLET PO SCH (22:35)
[2021-02-03] MEDS: SENNA/DOCUSATE TABLET PO SCH (22:35)
[2021-02-04] VITALS (8 sets, daily range): BP systolic 123–155; BP diastolic 76–82
[2021-02-04] MEDS: CARVEDILOL 6.25 MG TABLET PO SCH ×2 (05:53→17:59)
[2021-02-04] MEDS: CALCIUM/VITAMIN D3 250-125 TABLET PO SCH ×2 (09:00→21:00)
[2021-02-04] MEDS: LEVOFLOXACIN 500 MG TABLET PO SCH (09:15)
[2021-02-04] MEDS: ALLOPURINOL 300 MG TABLET PO SCH (09:15)
[2021-02-04] MEDS: ACYCLOVIR 200 MG CAPSULE PO SCH ×2 (09:15→21:59)
[2021-02-04] MEDS: FLUCONAZOLE 100 MG TABLET PO SCH ×2 (09:15→22:00)
[2021-02-04] MEDS: TBO-FILGRASTIM 480 MCG/0.8 ML SQ SCH (09:16)
[2021-02-04] MEDS: SENNA/DOCUSATE TABLET PO SCH (21:00)
[2021-02-04] MEDS: ATORVASTATIN 20 MG TABLET PO SCH (21:59)
[2021-02-05] VITALS (7 sets, daily range): BP systolic 130–158; BP diastolic 70–91
[2021-02-05 05:16] LABS: MEAN CORPUSCULAR HGB CONC 33.8 g/dL (33.2-36.2); MEAN PLATELET VOLUME 10.3 fL (7.4-10.4); PLATELET COUNT 52 x10^3/uL (130-400); RED BLOOD COUNT 1.84 x10^6/uL (4.38-5.82); RED CELL DISTRIBUTION WIDTH 23.9 % (9.4-14.8)
[2021-02-05 05:20] LABS: ALBUMIN 1.7 g/dL (3.4-5.0); ANION GAP 3 mmol/L (5-15); CALCIUM 7.4 mg/dL (8.5-10.1); CHLORIDE 106 mmol/L (98-107); CREATININE 0.49 mg/dL (0.7-1.3)
[2021-02-05] MEDS: CARVEDILOL 6.25 MG TABLET PO SCH ×2 (05:53→17:48)
[2021-02-05 06:36] LABS: EOS% (MANUAL) 4 % (1-7); LYMPH#(MANUAL) 0.08 x10^3/uL (1-3.4); LYMPHS% (MANUAL) 82 % (22-44); MONOS% (MANUAL) 4 % (2-9); REACTIVE LYMPHS % (MANUAL) 2 % (0-0); SEG#(MANUAL) 0.01 x10^3/uL (1.8-6.8); SEGS% (MANUAL) 8 % (42-75)
[2021-02-05 06:38] LABS: ANISOCYTOSIS 2+; HYPOCHROMIA 1+; MICROCYTOSIS 1+; TARGET CELLS 1+
[2021-02-05 06:39] LABS: <PLATELET ESTIMATE> DECREASED; HOWELL-JOLLY BODIES 1+; OVALOCYTES 1+; SCHISTOCYTES 1+
[2021-02-05 06:40] LABS: <PLT MORPHOLOGY> NORMAL PLT MORPH
[2021-02-05] MEDS: LEVOFLOXACIN 500 MG TABLET PO SCH (10:08)
[2021-02-05] MEDS: FLUCONAZOLE 100 MG TABLET PO SCH ×2 (10:08→21:17)
[2021-02-05] MEDS: CALCIUM/VITAMIN D3 250-125 TABLET PO SCH ×2 (10:09→21:17)
[2021-02-05] MEDS: ACYCLOVIR 200 MG CAPSULE PO SCH ×2 (10:09→21:17)
[2021-02-05] MEDS: TBO-FILGRASTIM 480 MCG/0.8 ML SQ SCH (10:09)
[2021-02-05] MEDS: ALLOPURINOL 300 MG TABLET PO SCH (10:09)
[2021-02-05] MEDS: SENNA/DOCUSATE TABLET PO SCH (21:00)
[2021-02-05] MEDS: ATORVASTATIN 20 MG TABLET PO SCH (21:17)
[2021-02-06 02:02] VITALS: BP 157/87
[2021-02-06 05:18] VITALS: BP 154/86
[2021-02-06] MEDS: CARVEDILOL 6.25 MG TABLET PO SCH ×2 (05:19→17:41)
[2021-02-06] MEDS ORDERED: CATHFLO-ALTEPLASE 2 MG/2 ML CATHFLUSH ONE (05:30)
[2021-02-06 05:42] LABS: MEAN CORPUSCULAR HEMOGLOBIN 34.6 pg (27.5-34.5); MEAN CORPUSCULAR HGB CONC 34.4 g/dL (33.2-36.2); MEAN PLATELET VOLUME 10.5 fL (7.4-10.4); RED CELL DISTRIBUTION WIDTH 23.3 % (9.4-14.8)
[2021-02-06 05:46] LABS: PLATELET COUNT 29 x10^3/uL (130-400)
[2021-02-06 05:50] LABS: ALBUMIN 1.7 g/dL (3.4-5.0); ANION GAP 6 mmol/L (5-15); CALCIUM 7.6 mg/dL (8.5-10.1); CHLORIDE 106 mmol/L (98-107)
[2021-02-06 05:52] LABS: CREATININE 0.46 mg/dL (0.7-1.3)
[2021-02-06 06:39] LABS: EOS% (MANUAL) 2 % (1-7); LYMPH#(MANUAL) 0.09 x10^3/uL (1-3.4); LYMPHS% (MANUAL) 86 % (22-44); SEG#(MANUAL) 0.01 x10^3/uL (1.8-6.8); SEGS% (MANUAL) 12 % (42-75)
[2021-02-06 06:40] LABS: <PLATELET ESTIMATE> DECREASED; <PLT MORPHOLOGY> NORMAL PLT MORPH; ANISOCYTOSIS 2+; HYPOCHROMIA 1+; MICROCYTOSIS 1+; OVALOCYTES 1+; SCHISTOCYTES 1+; TARGET CELLS 1+
[2021-02-06 06:45] LABS: HOWELL-JOLLY BODIES 1+
[2021-02-06 06:47] VITALS: BP 137/72
[2021-02-06] MEDS: ACYCLOVIR 200 MG CAPSULE PO SCH ×2 (09:42→21:10)
[2021-02-06] MEDS: CALCIUM/VITAMIN D3 250-125 TABLET PO SCH ×2 (09:42→21:10)
[2021-02-06] MEDS: TBO-FILGRASTIM 480 MCG/0.8 ML SQ SCH (09:43)
[2021-02-06] MEDS: FLUCONAZOLE 100 MG TABLET PO SCH ×2 (09:43→21:10)
[2021-02-06] MEDS: LEVOFLOXACIN 500 MG TABLET PO SCH (09:44)
[2021-02-06 12:29] VITALS: BP 177/87
[2021-02-06 12:40] VITALS: BP 143/75
[2021-02-06 19:07] VITALS: BP 150/75
[2021-02-06] MEDS: SENNA/DOCUSATE TABLET PO SCH (21:00)
[2021-02-06] MEDS: ATORVASTATIN 20 MG TABLET PO SCH (21:10)
[2021-02-07] VITALS (7 sets, daily range): BP systolic 122–158; BP diastolic 69–90
[2021-02-07 05:30] LABS: MEAN CORPUSCULAR HEMOGLOBIN 34.6 pg (27.5-34.5); MEAN CORPUSCULAR HGB CONC 34.6 g/dL (33.2-36.2); MEAN PLATELET VOLUME 10.6 fL (7.4-10.4); RED CELL DISTRIBUTION WIDTH 23.1 % (9.4-14.8)
[2021-02-07 05:43] LABS: ALANINE AMINOTRANSFERASE 60 U/L (12-78); ALBUMIN 1.8 g/dL (3.4-5.0); ANION GAP 5 mmol/L (5-15); CALCIUM 7.7 mg/dL (8.5-10.1); CHLORIDE 108 mmol/L (98-107); CREATININE 0.62 mg/dL (0.7-1.3)
[2021-02-07 05:45] LABS: ALKALINE PHOSPHATASE 311 U/L (45-117); TOTAL PROTEIN 5.9 g/dL (6.4-8.2)
[2021-02-07] MEDS: CARVEDILOL 6.25 MG TABLET PO SCH ×2 (06:09→18:26)
[2021-02-07 06:16] LABS: PLATELET COUNT 18 x10^3/uL (130-400)
[2021-02-07 06:34] LABS: BANDS%(MANUAL) 2 % (0-7); EOS% (MANUAL) 4 % (1-7); LYMPH#(MANUAL) 0.08 x10^3/uL (1-3.4); LYMPHS% (MANUAL) 76 % (22-44); SEG#(MANUAL) 0.02 x10^3/uL (1.8-6.8); SEGS% (MANUAL) 18 % (42-75)
[2021-02-07 06:35] LABS: ANISOCYTOSIS 2+; HOWELL-JOLLY BODIES 1+; HYPOCHROMIA 1+; MICROCYTOSIS 1+; OVALOCYTES 1+; SCHISTOCYTES 1+; TARGET CELLS 1+
[2021-02-07 06:36] LABS: <PLATELET ESTIMATE> DECREASED; <PLT MORPHOLOGY> NORMAL PLT MORPH
[2021-02-07] MEDS: CALCIUM/VITAMIN D3 250-125 TABLET PO SCH ×2 (08:05→21:00)
[2021-02-07] MEDS: FLUCONAZOLE 100 MG TABLET PO SCH ×2 (08:05→21:00)
[2021-02-07] MEDS: TBO-FILGRASTIM 480 MCG/0.8 ML SQ SCH (08:06)
[2021-02-07] MEDS: ACYCLOVIR 200 MG CAPSULE PO SCH ×2 (08:06→21:00)
[2021-02-07] MEDS: LEVOFLOXACIN 500 MG TABLET PO SCH (08:06)
[2021-02-07] MEDS ORDERED: MAGNESIUM SULFATE PMX 2GM/50ML 50 ML IV ONE (08:30)
[2021-02-07] MEDS: ATORVASTATIN 20 MG TABLET PO SCH (21:00)
[2021-02-07] MEDS: SENNA/DOCUSATE TABLET PO SCH (21:00)
[2021-02-08 00:20] VITALS: BP 154/81
[2021-02-08] MEDS: CARVEDILOL 6.25 MG TABLET PO SCH ×2 (05:29→19:16)
[2021-02-08 05:35] LABS: MEAN CORPUSCULAR HEMOGLOBIN 34.2 pg (27.5-34.5); MEAN CORPUSCULAR HGB CONC 34.2 g/dL (33.2-36.2); MEAN PLATELET VOLUME 10.5 fL (7.4-10.4); RED CELL DISTRIBUTION WIDTH 21.8 % (9.4-14.8)
[2021-02-08 05:42] LABS: PLATELET COUNT 39 x10^3/uL (130-400)
[2021-02-08 05:43] LABS: ANION GAP 5 mmol/L (5-15); CALCIUM 7.7 mg/dL (8.5-10.1); CHLORIDE 109 mmol/L (98-107)
[2021-02-08 05:44] LABS: CREATININE 0.51 mg/dL (0.7-1.3)
[2021-02-08 06:24] LABS: BANDS%(MANUAL) 2 % (0-7); EOS% (MANUAL) 3 % (1-7); LYMPH#(MANUAL) 0.08 x10^3/uL (1-3.4); LYMPHS% (MANUAL) 76 % (22-44); MONOS% (MANUAL) 2 % (2-9); SEG#(MANUAL) 0.02 x10^3/uL (1.8-6.8); SEGS% (MANUAL) 17 % (42-75)
[2021-02-08 06:25] LABS: <PLATELET ESTIMATE> DECREASED; <PLT MORPHOLOGY> NORMAL PLT MORPH; ANISOCYTOSIS 2+; HOWELL-JOLLY BODIES 1+; HYPOCHROMIA 1+; MICROCYTOSIS 1+; OVALOCYTES 1+; SCHISTOCYTES 1+; TARGET CELLS 1+
[2021-02-08 07:36] VITALS: BP 146/78
[2021-02-08] MEDS: CALCIUM/VITAMIN D3 250-125 TABLET PO SCH ×2 (09:31→19:38)
[2021-02-08] MEDS: ACYCLOVIR 200 MG CAPSULE PO SCH ×2 (09:32→19:37)
[2021-02-08] MEDS: LEVOFLOXACIN 500 MG TABLET PO SCH (09:33)
[2021-02-08] MEDS: FLUCONAZOLE 100 MG TABLET PO SCH ×2 (09:34→19:37)
[2021-02-08] MEDS: TBO-FILGRASTIM 480 MCG/0.8 ML SQ SCH (09:35)
[2021-02-08 12:59] VITALS: BP 161/81
[2021-02-08 19:33] VITALS: BP 140/80
[2021-02-08] MEDS: ATORVASTATIN 20 MG TABLET PO SCH (19:38)
[2021-02-08] MEDS: SENNA/DOCUSATE TABLET PO SCH (19:39)
[2021-02-09] VITALS (8 sets, daily range): BP systolic 131–158; BP diastolic 76–91
[2021-02-09] MEDS: CARVEDILOL 6.25 MG TABLET PO SCH ×2 (05:52→17:08)
[2021-02-09 06:16] LABS: MEAN CORPUSCULAR HEMOGLOBIN 34.3 pg (27.5-34.5); MEAN CORPUSCULAR HGB CONC 34.4 g/dL (33.2-36.2); MEAN PLATELET VOLUME 10.6 fL (7.4-10.4); RED BLOOD COUNT 2.08 x10^6/uL (4.38-5.82); RED CELL DISTRIBUTION WIDTH 22.7 % (9.4-14.8)
[2021-02-09 06:49] LABS: PLATELET COUNT 18 x10^3/uL (130-400)
[2021-02-09 08:17] LABS: SEG#(MANUAL) 0.02 x10^3/uL (1.8-6.8); SEGS% (MANUAL) 18 % (42-75)
[2021-02-09 08:18] LABS: BANDS%(MANUAL) 3 % (0-7); EOS% (MANUAL) 4 % (1-7); LYMPH#(MANUAL) 0.07 x10^3/uL (1-3.4); LYMPHS% (MANUAL) 70 % (22-44); MONOS#(MANUAL) 0.01 x10^3/uL (0.3-2.7); MONOS% (MANUAL) 5 % (2-9)
[2021-02-09 08:19] LABS: ANISOCYTOSIS 2+; HYPOCHROMIA 1+; MICROCYTOSIS 1+; TARGET CELLS 1+
[2021-02-09 08:20] LABS: <PLATELET ESTIMATE> DECREASED; <PLT MORPHOLOGY> NORMAL PLT MORPH; HOWELL-JOLLY BODIES 1+; OVALOCYTES 1+; SCHISTOCYTES 1+
[2021-02-09] MEDS: FLUCONAZOLE 100 MG TABLET PO SCH ×2 (09:47→21:17)
[2021-02-09] MEDS: ACYCLOVIR 200 MG CAPSULE PO SCH ×2 (09:47→21:22)
[2021-02-09] MEDS: LEVOFLOXACIN 500 MG TABLET PO SCH (09:47)
[2021-02-09] MEDS: CALCIUM/VITAMIN D3 250-125 TABLET PO SCH ×2 (09:47→21:18)
[2021-02-09] MEDS: TBO-FILGRASTIM 480 MCG/0.8 ML SQ SCH (10:17)
[2021-02-09] MEDS: ATORVASTATIN 20 MG TABLET PO SCH (21:17)
[2021-02-09] MEDS: SENNA/DOCUSATE TABLET PO SCH (21:18)
[2021-02-10] VITALS (8 sets, daily range): BP systolic 136–164; BP diastolic 61–89
[2021-02-10 05:09] LABS: MEAN CORPUSCULAR HEMOGLOBIN 34.2 pg (27.5-34.5); MEAN CORPUSCULAR HGB CONC 33.9 g/dL (33.2-36.2); MEAN PLATELET VOLUME 10.3 fL (7.4-10.4); RED BLOOD COUNT 1.98 x10^6/uL (4.38-5.82); RED CELL DISTRIBUTION WIDTH 22.7 % (9.4-14.8)
[2021-02-10 05:12] LABS: PLATELET COUNT 39 x10^3/uL (130-400)
[2021-02-10 06:10] LABS: BANDS%(MANUAL) 4 % (0-7); EOS#(MANUAL) 0.01 x10^3/uL (0.0-0.4); EOS% (MANUAL) 5 % (1-7); LYMPH#(MANUAL) 0.07 x10^3/uL (1-3.4); LYMPHS% (MANUAL) 67 % (22-44); MONOS% (MANUAL) 2 % (2-9); SEG#(MANUAL) 0.02 x10^3/uL (1.8-6.8); SEGS% (MANUAL) 22 % (42-75)
[2021-02-10 06:12] LABS: ANISOCYTOSIS 2+; HOWELL-JOLLY BODIES 1+; HYPOCHROMIA 1+; MICROCYTOSIS 1+; OVALOCYTES 1+; TARGET CELLS 1+
[2021-02-10 06:13] LABS: <PLATELET ESTIMATE> DECREASED; <PLT MORPHOLOGY> NORMAL PLT MORPH
[2021-02-10] MEDS: CARVEDILOL 6.25 MG TABLET PO SCH ×2 (06:17→17:39)
[2021-02-10] MEDS: FLUCONAZOLE 100 MG TABLET PO SCH ×2 (07:50→20:36)
[2021-02-10] MEDS: ACYCLOVIR 200 MG CAPSULE PO SCH ×2 (07:50→20:37)
[2021-02-10] MEDS: LEVOFLOXACIN 500 MG TABLET PO SCH (07:50)
[2021-02-10] MEDS: CALCIUM/VITAMIN D3 250-125 TABLET PO SCH ×2 (07:50→20:38)
[2021-02-10] MEDS: TBO-FILGRASTIM 480 MCG/0.8 ML SQ SCH (08:39)
[2021-02-10] MEDS: ACETAMINOPHEN 325 MG TABLET PO PRN (11:07)
[2021-02-10] MEDS: SENNA/DOCUSATE TABLET PO SCH (20:37)
[2021-02-10] MEDS: ATORVASTATIN 20 MG TABLET PO SCH (20:38)
[2021-02-11 00:50] VITALS: BP 140/78
[2021-02-11] MEDS: CARVEDILOL 6.25 MG TABLET PO SCH ×2 (06:25→16:58)
[2021-02-11 06:51] LABS: ALANINE AMINOTRANSFERASE 62 U/L (12-78); ANION GAP 3 mmol/L (5-15); CALCIUM 7.6 mg/dL (8.5-10.1); CHLORIDE 110 mmol/L (98-107); CREATININE 0.51 mg/dL (0.7-1.3)
[2021-02-11 06:53] LABS: ALKALINE PHOSPHATASE 268 U/L (45-117); TOTAL PROTEIN 6.3 g/dL (6.4-8.2)
[2021-02-11 07:27] LABS: MEAN CORPUSCULAR HEMOGLOBIN 34.3 pg (27.5-34.5); MEAN CORPUSCULAR HGB CONC 34.7 g/dL (33.2-36.2); MEAN PLATELET VOLUME 11.2 fL (7.4-10.4); RED BLOOD COUNT 2.19 x10^6/uL (4.38-5.82); RED CELL DISTRIBUTION WIDTH 21.2 % (9.4-14.8)
[2021-02-11 07:44] LABS: PLATELET COUNT 22 x10^3/uL (130-400)
[2021-02-11 07:47] LABS: ANISOCYTOSIS 2+; BANDS%(MANUAL) 1 % (0-7); EOS% (MANUAL) 2 % (1-7); LYMPH#(MANUAL) 0.07 x10^3/uL (1-3.4); LYMPHS% (MANUAL) 67 % (22-44); MICROCYTOSIS 1+; MONOS% (MANUAL) 2 % (2-9); SEG#(MANUAL) 0.03 x10^3/uL (1.8-6.8); SEGS% (MANUAL) 28 % (42-75)
[2021-02-11 07:48] LABS: <PLATELET ESTIMATE> DECREASED; <PLT MORPHOLOGY> NORMAL PLT MORPH; HYPOCHROMIA 1+; OVALOCYTES 1+; TARGET CELLS 1+
[2021-02-11] MEDS: FLUCONAZOLE 100 MG TABLET PO SCH ×2 (08:01→21:25)
[2021-02-11] MEDS: ACYCLOVIR 200 MG CAPSULE PO SCH ×2 (08:01→21:24)
[2021-02-11] MEDS: LEVOFLOXACIN 500 MG TABLET PO SCH (08:02)
[2021-02-11] MEDS: CALCIUM/VITAMIN D3 250-125 TABLET PO SCH ×2 (08:02→21:25)
[2021-02-11 08:12] VITALS: BP 149/90
[2021-02-11] MEDS: TBO-FILGRASTIM 480 MCG/0.8 ML SQ SCH (09:10)
[2021-02-11 14:17] VITALS: BP 128/73
[2021-02-11 21:20] VITALS: BP 133/80
[2021-02-11] MEDS: ATORVASTATIN 20 MG TABLET PO SCH (21:26)
[2021-02-11] MEDS: SENNA/DOCUSATE TABLET PO SCH (21:26)
[2021-02-12] VITALS (8 sets, daily range): BP systolic 118–152; BP diastolic 64–87
[2021-02-12] MEDS: CARVEDILOL 6.25 MG TABLET PO SCH ×2 (05:31→17:38)
[2021-02-12 05:57] LABS: MEAN CORPUSCULAR HEMOGLOBIN 34.1 pg (27.5-34.5); MEAN CORPUSCULAR HGB CONC 34.9 g/dL (33.2-36.2); MEAN PLATELET VOLUME 10.6 fL (7.4-10.4); RED BLOOD COUNT 2.13 x10^6/uL (4.38-5.82); RED CELL DISTRIBUTION WIDTH 20.2 % (9.4-14.8)
[2021-02-12 06:08] LABS: PLATELET COUNT 12 x10^3/uL (130-400)
[2021-02-12 06:48] LABS: SEG#(MANUAL) 0.05 x10^3/uL (1.8-6.8); SEGS% (MANUAL) 46 % (42-75)
[2021-02-12 06:49] LABS: BASOS% (MANUAL) 4 % (0-1); EOS% (MANUAL) 4 % (1-7); LYMPH#(MANUAL) 0.05 x10^3/uL (1-3.4); LYMPHS% (MANUAL) 46 % (22-44)
[2021-02-12 06:51] LABS: <PLATELET ESTIMATE> DECREASED; ANISOCYTOSIS 2+; HYPOCHROMIA 1+; MICROCYTOSIS 1+; OVALOCYTES 1+
[2021-02-12 06:53] LABS: <PLT MORPHOLOGY> NORMAL PLT MORPH; HOWELL-JOLLY BODIES 1+; TARGET CELLS 1+
[2021-02-12] MEDS: CALCIUM/VITAMIN D3 250-125 TABLET PO SCH ×2 (09:00→21:00)
[2021-02-12] MEDS: TBO-FILGRASTIM 480 MCG/0.8 ML SQ SCH (09:11)
[2021-02-12] MEDS: FLUCONAZOLE 100 MG TABLET PO SCH ×2 (09:11→22:01)
[2021-02-12] MEDS: LEVOFLOXACIN 500 MG TABLET PO SCH (09:11)
[2021-02-12] MEDS: ACYCLOVIR 200 MG CAPSULE PO SCH ×2 (09:11→22:01)
[2021-02-12] MEDS: ACETAMINOPHEN 325 MG TABLET PO PRN (09:36)
[2021-02-12] MEDS: DIPHENHYDRAMINE 50 MG/ML, 1ML IVPush PRN (09:36)
[2021-02-12] MEDS: SENNA/DOCUSATE TABLET PO SCH (22:00)
[2021-02-12] MEDS: ATORVASTATIN 20 MG TABLET PO SCH (22:00)
[2021-02-13 00:41] VITALS: BP 136/84
[2021-02-13] MEDS: CARVEDILOL 6.25 MG TABLET PO SCH ×2 (05:31→17:51)
[2021-02-13 06:00] LABS: MEAN CORPUSCULAR HEMOGLOBIN 33.8 pg (27.5-34.5); MEAN CORPUSCULAR HGB CONC 34.4 g/dL (33.2-36.2); MEAN PLATELET VOLUME 10.3 fL (7.4-10.4); RED BLOOD COUNT 2.08 x10^6/uL (4.38-5.82); RED CELL DISTRIBUTION WIDTH 19.3 % (9.4-14.8)
[2021-02-13 06:08] LABS: PLATELET COUNT 39 x10^3/uL (130-400)
[2021-02-13 06:47] VITALS: BP 117/63
[2021-02-13 07:16] LABS: BAND#(MANUAL) 0.02 x10^3/uL; BANDS%(MANUAL) 8 % (0-7); EOS% (MANUAL) 1 % (1-7); LYMPHS% (MANUAL) 50 % (22-44); MONOS#(MANUAL) 0.01 x10^3/uL (0.3-2.7); MONOS% (MANUAL) 4 % (2-9); SEG#(MANUAL) 0.07 x10^3/uL (1.8-6.8); SEGS% (MANUAL) 37 % (42-75)
[2021-02-13 07:18] LABS: ANISOCYTOSIS 2+; MICROCYTOSIS 1+; OVALOCYTES 1+; TARGET CELLS 1+
[2021-02-13 07:19] LABS: <PLATELET ESTIMATE> DECREASED; HOWELL-JOLLY BODIES 1+; HYPOCHROMIA 1+
[2021-02-13 07:20] LABS: <PLT MORPHOLOGY> NORMAL PLT MORPH
[2021-02-13] MEDS: FLUCONAZOLE 100 MG TABLET PO SCH ×2 (09:56→21:29)
[2021-02-13] MEDS: ACYCLOVIR 200 MG CAPSULE PO SCH ×2 (09:56→21:29)
[2021-02-13] MEDS: LEVOFLOXACIN 500 MG TABLET PO SCH (09:56)
[2021-02-13] MEDS: CALCIUM/VITAMIN D3 250-125 TABLET PO SCH ×2 (09:57→21:00)
[2021-02-13] MEDS: TBO-FILGRASTIM 480 MCG/0.8 ML SQ SCH (09:58)
[2021-02-13 12:01] VITALS: BP 136/62
[2021-02-13 18:43] VITALS: BP 152/79
[2021-02-13] MEDS: SENNA/DOCUSATE TABLET PO SCH (21:00)
[2021-02-13] MEDS: ATORVASTATIN 20 MG TABLET PO SCH (21:30)
[2021-02-14] VITALS (9 sets, daily range): BP systolic 120–158; BP diastolic 70–91
[2021-02-14] MEDS: CARVEDILOL 6.25 MG TABLET PO SCH ×2 (06:18→16:31)
[2021-02-14 06:37] LABS: MEAN CORPUSCULAR HEMOGLOBIN 33.3 pg (27.5-34.5); MEAN CORPUSCULAR HGB CONC 33.9 g/dL (33.2-36.2); MEAN PLATELET VOLUME 10.9 fL (7.4-10.4); RED BLOOD COUNT 2.04 x10^6/uL (4.38-5.82); RED CELL DISTRIBUTION WIDTH 20.2 % (9.4-14.8)
[2021-02-14 06:45] LABS: PLATELET COUNT 24 x10^3/uL (130-400)
[2021-02-14 06:54] LABS: ALANINE AMINOTRANSFERASE 48 U/L (12-78); ALBUMIN 2.2 g/dL (3.4-5.0); ANION GAP 6 mmol/L (5-15); CHLORIDE 106 mmol/L (98-107); CREATININE 0.55 mg/dL (0.7-1.3)
[2021-02-14 06:56] LABS: ALKALINE PHOSPHATASE 249 U/L (45-117); BILIRUBIN,TOTAL 0.8 mg/dL (0.2-1.0); TOTAL PROTEIN 6.7 g/dL (6.4-8.2)
[2021-02-14 07:29] LABS: BAND#(MANUAL) 0.01 x10^3/uL; BANDS%(MANUAL) 5 % (0-7); BASOS% (MANUAL) 1 % (0-1); EOS% (MANUAL) 3 % (1-7); LYMPH#(MANUAL) 0.05 x10^3/uL (1-3.4); LYMPHS% (MANUAL) 48 % (22-44); MONOS% (MANUAL) 3 % (2-9); SEG#(MANUAL) 0.04 x10^3/uL (1.8-6.8); SEGS% (MANUAL) 40 % (42-75)
[2021-02-14 07:42] LABS: ANISOCYTOSIS 2+; HYPOCHROMIA 1+; MICROCYTOSIS 1+; OVALOCYTES 1+
[2021-02-14 07:43] LABS: HOWELL-JOLLY BODIES 1+; TARGET CELLS 1+
[2021-02-14 07:44] LABS: <PLATELET ESTIMATE> DECREASED; <PLT MORPHOLOGY> NORMAL PLT MORPH
[2021-02-14] MEDS: LEVOFLOXACIN 500 MG TABLET PO SCH (09:04)
[2021-02-14] MEDS: FLUCONAZOLE 100 MG TABLET PO SCH ×2 (09:04→20:13)
[2021-02-14] MEDS: ACYCLOVIR 200 MG CAPSULE PO SCH ×2 (09:04→20:13)
[2021-02-14] MEDS: CALCIUM/VITAMIN D3 250-125 TABLET PO SCH ×2 (09:04→20:13)
[2021-02-14] MEDS: DIPHENHYDRAMINE 50 MG/ML, 1ML IVPush PRN (09:40)
[2021-02-14] MEDS: ACETAMINOPHEN 325 MG TABLET PO PRN (09:40)
[2021-02-14] MEDS: TBO-FILGRASTIM 480 MCG/0.8 ML SQ SCH (09:40)
[2021-02-14] MEDS: ATORVASTATIN 20 MG TABLET PO SCH (20:14)
[2021-02-14] MEDS: SENNA/DOCUSATE TABLET PO SCH (20:14)
[2021-02-15] VITALS (9 sets, daily range): BP systolic 109–139; BP diastolic 62–90
[2021-02-15] MEDS: CARVEDILOL 6.25 MG TABLET PO SCH ×2 (06:25→17:31)
[2021-02-15 07:00] LABS: MEAN CORPUSCULAR HEMOGLOBIN 33.1 pg (27.5-34.5); MEAN CORPUSCULAR HGB CONC 34.2 g/dL (33.2-36.2); MEAN PLATELET VOLUME 10.2 fL (7.4-10.4); RED CELL DISTRIBUTION WIDTH 17.6 % (9.4-14.8)
[2021-02-15 07:02] LABS: PLATELET COUNT 15 x10^3/uL (130-400)
[2021-02-15 07:54] LABS: BANDS%(MANUAL) 2 % (0-7); EOS% (MANUAL) 2 % (1-7); LYMPH#(MANUAL) 0.04 x10^3/uL (1-3.4); LYMPHS% (MANUAL) 40 % (22-44); SEG#(MANUAL) 0.06 x10^3/uL (1.8-6.8); SEGS% (MANUAL) 56 % (42-75)
[2021-02-15 07:55] LABS: ANISOCYTOSIS 2+; HOWELL-JOLLY BODIES 1+; HYPOCHROMIA 1+; MICROCYTOSIS 1+; OVALOCYTES 1+; TARGET CELLS 1+
[2021-02-15 07:56] LABS: <PLATELET ESTIMATE> DECREASED; <PLT MORPHOLOGY> NORMAL PLT MORPH
[2021-02-15] MEDS: FLUCONAZOLE 100 MG TABLET PO SCH ×2 (08:20→21:02)
[2021-02-15] MEDS: ACYCLOVIR 200 MG CAPSULE PO SCH ×2 (08:20→21:01)
[2021-02-15] MEDS: LEVOFLOXACIN 500 MG TABLET PO SCH (08:20)
[2021-02-15] MEDS: CALCIUM/VITAMIN D3 250-125 TABLET PO SCH ×2 (08:21→21:00)
[2021-02-15] MEDS: TBO-FILGRASTIM 480 MCG/0.8 ML SQ SCH (08:33)
[2021-02-15] MEDS: DIPHENHYDRAMINE 50 MG/ML, 1ML IVPush PRN (09:09)
[2021-02-15] MEDS: ACETAMINOPHEN 325 MG TABLET PO PRN (09:09)
[2021-02-15] MEDS: SENNA/DOCUSATE TABLET PO SCH (21:00)
[2021-02-15] MEDS: ATORVASTATIN 20 MG TABLET PO SCH (21:02)
[2021-02-16 02:19] VITALS: BP 118/70
[2021-02-16 05:58] LABS: MEAN CORPUSCULAR HEMOGLOBIN 33.2 pg (27.5-34.5); MEAN CORPUSCULAR HGB CONC 34.6 g/dL (33.2-36.2); RED BLOOD COUNT 2.25 x10^6/uL (4.38-5.82); RED CELL DISTRIBUTION WIDTH 17.1 % (9.4-14.8)
[2021-02-16 06:09] LABS: PLATELET COUNT 30 x10^3/uL (130-400)
[2021-02-16] MEDS: CARVEDILOL 6.25 MG TABLET PO SCH ×2 (06:39→17:06)
[2021-02-16 06:47] LABS: BANDS%(MANUAL) 1 % (0-7); BASOS% (MANUAL) 1 % (0-1); EOS% (MANUAL) 2 % (1-7); LYMPHS% (MANUAL) 51 % (22-44); MONOS#(MANUAL) 0.01 x10^3/uL (0.3-2.7); MONOS% (MANUAL) 3 % (2-9); REACTIVE LYMPHS % (MANUAL) 1 % (0-0); SEG#(MANUAL) 0.08 x10^3/uL (1.8-6.8); SEGS% (MANUAL) 41 % (42-75)
[2021-02-16 06:48] LABS: <PLATELET ESTIMATE> DECREASED; <PLT MORPHOLOGY> NORMAL PLT MORPH; ANISOCYTOSIS 2+; HOWELL-JOLLY BODIES 1+; HYPOCHROMIA 1+; MICROCYTOSIS 1+; OVALOCYTES 1+; TARGET CELLS 1+
[2021-02-16 07:25] VITALS: BP 105/65
[2021-02-16] MEDS: LEVOFLOXACIN 500 MG TABLET PO SCH (09:13)
[2021-02-16] MEDS: FLUCONAZOLE 100 MG TABLET PO SCH ×2 (09:14→21:49)
[2021-02-16] MEDS: CALCIUM/VITAMIN D3 250-125 TABLET PO SCH ×2 (09:14→21:00)
[2021-02-16] MEDS: ACYCLOVIR 200 MG CAPSULE PO SCH ×2 (09:14→21:48)
[2021-02-16] MEDS: TBO-FILGRASTIM 480 MCG/0.8 ML SQ SCH (10:15)
[2021-02-16 14:03] VITALS: BP 126/70
[2021-02-16 18:57] VITALS: BP 130/77
[2021-02-16] MEDS: SENNA/DOCUSATE TABLET PO SCH (21:49)
[2021-02-16] MEDS: ATORVASTATIN 20 MG TABLET PO SCH (21:49)
[2021-02-17] VITALS (15 sets, daily range): BP systolic 86–145; BP diastolic 49–86
[2021-02-17] MEDS: CARVEDILOL 6.25 MG TABLET PO SCH ×2 (06:02→17:06)
[2021-02-17 06:20] LABS: MEAN CORPUSCULAR HEMOGLOBIN 33.1 pg (27.5-34.5); MEAN CORPUSCULAR HGB CONC 34.5 g/dL (33.2-36.2); MEAN PLATELET VOLUME 9.6 fL (7.4-10.4); RED BLOOD COUNT 2.25 x10^6/uL (4.38-5.82)
[2021-02-17 06:26] LABS: PLATELET COUNT 16 x10^3/uL (130-400)
[2021-02-17 07:04] LABS: BAND#(MANUAL) 0.02 x10^3/uL; BANDS%(MANUAL) 10 % (0-7); LYMPH#(MANUAL) 0.04 x10^3/uL (1-3.4); LYMPHS% (MANUAL) 20 % (22-44); MONOS% (MANUAL) 2 % (2-9); SEG#(MANUAL) 0.14 x10^3/uL (1.8-6.8); SEGS% (MANUAL) 68 % (42-75)
[2021-02-17 07:08] LABS: <PLATELET ESTIMATE> DECREASED; <PLT MORPHOLOGY> NORMAL PLT MORPH; ANISOCYTOSIS 2+; HOWELL-JOLLY BODIES 1+; HYPOCHROMIA 1+; MICROCYTOSIS 1+; OVALOCYTES 1+; TARGET CELLS 1+
[2021-02-17] MEDS ORDERED: SODIUM CHLORIDE 0.9% 1,000ML IVBOLUS ONE (08:30)
[2021-02-17] MEDS: SENNA/DOCUSATE TABLET PO SCH ×2 (09:49→20:33)
[2021-02-17] MEDS: ACYCLOVIR 200 MG CAPSULE PO SCH ×2 (09:49→20:33)
[2021-02-17] MEDS: LEVOFLOXACIN 500 MG TABLET PO SCH (09:49)
[2021-02-17] MEDS: FLUCONAZOLE 100 MG TABLET PO SCH ×2 (09:49→20:34)
[2021-02-17] MEDS: POLYETHYLENE GLYCOL 17 GM PACKET PO SCH ×2 (09:50→20:33)
[2021-02-17] MEDS: CALCIUM/VITAMIN D3 250-125 TABLET PO SCH ×2 (09:50→20:35)
[2021-02-17 10:35] LABS: TROPONIN I < 0.015 ng/mL (0.000-0.045)
[2021-02-17] MEDS: ACETAMINOPHEN 325 MG TABLET PO PRN (10:37)
[2021-02-17] MEDS: TBO-FILGRASTIM 480 MCG/0.8 ML SQ SCH (10:37)
[2021-02-17] MEDS: DIPHENHYDRAMINE 50 MG/ML, 1ML IVPush PRN (10:37)
[2021-02-17] MEDS: ATORVASTATIN 20 MG TABLET PO SCH (20:35)
[2021-02-18] VITALS (8 sets, daily range): BP systolic 104–160; BP diastolic 71–84
[2021-02-18] MEDS: CARVEDILOL 6.25 MG TABLET PO SCH ×2 (06:02→18:40)
[2021-02-18 06:18] LABS: MEAN CORPUSCULAR HEMOGLOBIN 33.5 pg (27.5-34.5); MEAN CORPUSCULAR HGB CONC 34.6 g/dL (33.2-36.2); MEAN PLATELET VOLUME 9.6 fL (7.4-10.4); RED BLOOD COUNT 2.06 x10^6/uL (4.38-5.82); RED CELL DISTRIBUTION WIDTH 16.8 % (9.4-14.8)
[2021-02-18 06:22] LABS: PLATELET COUNT 38 x10^3/uL (130-400)
[2021-02-18 07:26] LABS: BANDS%(MANUAL) 2 % (0-7); EOS% (MANUAL) 2 % (1-7); LYMPH#(MANUAL) 0.04 x10^3/uL (1-3.4); LYMPHS% (MANUAL) 22 % (22-44); MONOS#(MANUAL) 0.02 x10^3/uL (0.3-2.7); MONOS% (MANUAL) 8 % (2-9); SEG#(MANUAL) 0.13 x10^3/uL (1.8-6.8); SEGS% (MANUAL) 66 % (42-75)
[2021-02-18 07:28] LABS: <PLATELET ESTIMATE> DECREASED; <PLT MORPHOLOGY> NORMAL PLT MORPH; ANISOCYTOSIS 2+; HOWELL-JOLLY BODIES 1+; HYPOCHROMIA 1+; MICROCYTOSIS 1+; OVALOCYTES 1+; TARGET CELLS 1+
[2021-02-18] MEDS: CALCIUM/VITAMIN D3 250-125 TABLET PO SCH ×2 (09:00→21:38)
[2021-02-18] MEDS: POLYETHYLENE GLYCOL 17 GM PACKET PO SCH ×2 (09:22→21:38)
[2021-02-18] MEDS: SENNA/DOCUSATE TABLET PO SCH ×2 (09:22→21:37)
[2021-02-18] MEDS: FLUCONAZOLE 100 MG TABLET PO SCH ×2 (09:22→21:38)
[2021-02-18] MEDS: LEVOFLOXACIN 500 MG TABLET PO SCH (09:23)
[2021-02-18] MEDS: ACYCLOVIR 200 MG CAPSULE PO SCH ×2 (09:23→21:37)
[2021-02-18] MEDS: TBO-FILGRASTIM 480 MCG/0.8 ML SQ SCH (12:02)
[2021-02-18] MEDS: ATORVASTATIN 20 MG TABLET PO SCH (21:38)
[2021-02-19 02:17] VITALS: BP 151/74
[2021-02-19 05:51] VITALS: BP 131/87
[2021-02-19] MEDS: CARVEDILOL 6.25 MG TABLET PO SCH ×2 (05:52→17:53)
[2021-02-19 06:03] LABS: MEAN CORPUSCULAR HEMOGLOBIN 32.9 pg (27.5-34.5); MEAN CORPUSCULAR HGB CONC 34.9 g/dL (33.2-36.2); RED BLOOD COUNT 2.39 x10^6/uL (4.38-5.82); RED CELL DISTRIBUTION WIDTH 16.5 % (9.4-14.8)
[2021-02-19 06:06] LABS: PLATELET COUNT 26 x10^3/uL (130-400)
[2021-02-19 06:30] VITALS: BP 125/65
[2021-02-19 06:44] LABS: ANISOCYTOSIS 2+; BAND#(MANUAL) 0.01 x10^3/uL; BANDS%(MANUAL) 4 % (0-7); EOS#(MANUAL) 0.01 x10^3/uL (0.0-0.4); EOS% (MANUAL) 2 % (1-7); HYPOCHROMIA 1+; LYMPH#(MANUAL) 0.08 x10^3/uL (1-3.4); LYMPHS% (MANUAL) 28 % (22-44); MICROCYTOSIS 1+; MONOS#(MANUAL) 0.01 x10^3/uL (0.3-2.7); MONOS% (MANUAL) 2 % (2-9); OVALOCYTES 1+; SEG#(MANUAL) 0.19 x10^3/uL (1.8-6.8); SEGS% (MANUAL) 64 % (42-75)
[2021-02-19 06:45] LABS: <PLATELET ESTIMATE> DECREASED; <PLT MORPHOLOGY> NORMAL PLT MORPH; TARGET CELLS 1+
[2021-02-19] MEDS: CALCIUM/VITAMIN D3 250-125 TABLET PO SCH ×2 (09:00→21:00)
[2021-02-19] MEDS: FLUCONAZOLE 100 MG TABLET PO SCH ×2 (10:21→21:23)
[2021-02-19] MEDS: SENNA/DOCUSATE TABLET PO SCH ×2 (10:21→21:24)
[2021-02-19] MEDS: POLYETHYLENE GLYCOL 17 GM PACKET PO SCH ×2 (10:22→21:23)
[2021-02-19] MEDS: ACYCLOVIR 200 MG CAPSULE PO SCH ×2 (10:22→21:23)
[2021-02-19] MEDS: LEVOFLOXACIN 500 MG TABLET PO SCH (10:24)
[2021-02-19] MEDS: TBO-FILGRASTIM 480 MCG/0.8 ML SQ SCH (12:01)
[2021-02-19 14:37] VITALS: BP 126/72
[2021-02-19 18:51] VITALS: BP 150/79
[2021-02-19] MEDS: ATORVASTATIN 20 MG TABLET PO SCH (21:23)
[2021-02-20] VITALS (8 sets, daily range): BP systolic 103–154; BP diastolic 63–98
[2021-02-20] MEDS: CARVEDILOL 6.25 MG TABLET PO SCH ×2 (05:59→17:15)
[2021-02-20 06:40] LABS: MEAN CORPUSCULAR HEMOGLOBIN 32.7 pg (27.5-34.5); MEAN CORPUSCULAR HGB CONC 34.5 g/dL (33.2-36.2); MEAN PLATELET VOLUME 9.8 fL (7.4-10.4); RED BLOOD COUNT 2.34 x10^6/uL (4.38-5.82); RED CELL DISTRIBUTION WIDTH 16.1 % (9.4-14.8)
[2021-02-20 06:53] LABS: PLATELET COUNT 16 x10^3/uL (130-400)
[2021-02-20 07:42] LABS: BAND#(MANUAL) 0.02 x10^3/uL; BANDS%(MANUAL) 6 % (0-7); EOS% (MANUAL) 1 % (1-7); LYMPH#(MANUAL) 0.03 x10^3/uL (1-3.4); LYMPHS% (MANUAL) 9 % (22-44); MONOS% (MANUAL) 1 % (2-9); SEG#(MANUAL) 0.25 x10^3/uL (1.8-6.8); SEGS% (MANUAL) 83 % (42-75)
[2021-02-20 07:45] LABS: ANISOCYTOSIS 2+; MICROCYTOSIS 1+
[2021-02-20 07:46] LABS: <PLATELET ESTIMATE> DECREASED; LARGE PLATELETS 1+; OVALOCYTES 1+; POLYCHROMASIA 1+; TARGET CELLS 1+
[2021-02-20 07:47] LABS: ACANTHOCYTES 1+; HOWELL-JOLLY BODIES 1+
[2021-02-20] MEDS: CALCIUM/VITAMIN D3 250-125 TABLET PO SCH ×2 (09:00→21:00)
[2021-02-20] MEDS: SENNA/DOCUSATE TABLET PO SCH ×2 (09:41→21:00)
[2021-02-20] MEDS: TBO-FILGRASTIM 480 MCG/0.8 ML SQ SCH (09:42)
[2021-02-20] MEDS: POLYETHYLENE GLYCOL 17 GM PACKET PO SCH ×3 (09:42→21:00)
[2021-02-20] MEDS: LEVOFLOXACIN 500 MG TABLET PO SCH (09:42)
[2021-02-20] MEDS: ACYCLOVIR 200 MG CAPSULE PO SCH ×2 (09:42→21:00)
[2021-02-20] MEDS: FLUCONAZOLE 100 MG TABLET PO SCH ×2 (09:42→21:00)
[2021-02-20] MEDS: DIPHENHYDRAMINE 50 MG/ML, 1ML IVPush PRN (10:59)
[2021-02-20] MEDS: ACETAMINOPHEN 325 MG TABLET PO PRN (10:59)
[2021-02-20] MEDS: METOCLOPRAMIDE 5 MG/ML, 2ML IVPush SCH ×2 (17:14→22:00)
[2021-02-20] MEDS: ATORVASTATIN 20 MG TABLET PO SCH (21:00)
[2021-02-21 01:00] VITALS: BP 156/86
[2021-02-21] MEDS: METOCLOPRAMIDE 5 MG/ML, 2ML IVPush SCH ×3 (05:39→19:24)
[2021-02-21] MEDS: CARVEDILOL 6.25 MG TABLET PO SCH ×2 (05:39→19:24)
[2021-02-21 06:29] LABS: MEAN CORPUSCULAR HEMOGLOBIN 32.8 pg (27.5-34.5); MEAN CORPUSCULAR HGB CONC 34.5 g/dL (33.2-36.2); MEAN PLATELET VOLUME 9.3 fL (7.4-10.4); RED CELL DISTRIBUTION WIDTH 15.9 % (9.4-14.8)
[2021-02-21 06:30] LABS: PLATELET COUNT 41 x10^3/uL (130-400)
[2021-02-21 07:14] LABS: SEGS% (MANUAL) 74 % (42-75)
[2021-02-21 07:15] LABS: BAND#(MANUAL) 0.02 x10^3/uL; BANDS%(MANUAL) 6 % (0-7); EOS#(MANUAL) 0.02 x10^3/uL (0.0-0.4); EOS% (MANUAL) 6 % (1-7); LYMPH#(MANUAL) 0.06 x10^3/uL (1-3.4); LYMPHS% (MANUAL) 14 % (22-44)
[2021-02-21 07:16] LABS: <PLATELET ESTIMATE> DECREASED; ACANTHOCYTES 1+; ANISOCYTOSIS 2+; LARGE PLATELETS 1+; MICROCYTOSIS 1+; OVALOCYTES 1+; POLYCHROMASIA 1+; TARGET CELLS 1+
[2021-02-21] MEDS: TAMSULOSIN 0.4 MG CAP.ER.24H PO SCH (12:02)
[2021-02-21] MEDS: FLUCONAZOLE 100 MG TABLET PO SCH ×2 (12:02→22:26)
[2021-02-21] MEDS: CALCIUM/VITAMIN D3 250-125 TABLET PO SCH ×2 (12:03→22:26)
[2021-02-21] MEDS: MAGNESIUM OXIDE 400 MG TABLET PO SCH (12:04)
[2021-02-21] MEDS: SENNA/DOCUSATE TABLET PO SCH ×2 (12:04→21:00)
[2021-02-21] MEDS: ACYCLOVIR 200 MG CAPSULE PO SCH ×2 (12:05→22:26)
[2021-02-21] MEDS: LEVOFLOXACIN 500 MG TABLET PO SCH (12:05)
[2021-02-21] MEDS: POLYETHYLENE GLYCOL 17 GM PACKET PO SCH ×3 (12:06→22:26)
[2021-02-21] MEDS: TBO-FILGRASTIM 480 MCG/0.8 ML SQ SCH (12:06)
[2021-02-21 16:59] VITALS: BP 145/78
[2021-02-21 19:27] VITALS: BP 121/76
[2021-02-21] MEDS: ATORVASTATIN 20 MG TABLET PO SCH (22:26)
[2021-02-22] VITALS (10 sets, daily range): BP systolic 102–136; BP diastolic 65–81
[2021-02-22] MEDS: CARVEDILOL 6.25 MG TABLET PO SCH ×2 (06:06→16:51)
[2021-02-22] MEDS: METOCLOPRAMIDE 5 MG/ML, 2ML IVPush SCH ×2 (06:07)
[2021-02-22 06:34] LABS: MEAN CORPUSCULAR HEMOGLOBIN 32.8 pg (27.5-34.5); MEAN CORPUSCULAR HGB CONC 34.3 g/dL (33.2-36.2); MEAN PLATELET VOLUME 9.8 fL (7.4-10.4); RED BLOOD COUNT 2.09 x10^6/uL (4.38-5.82)
[2021-02-22 06:40] LABS: PLATELET COUNT 25 x10^3/uL (130-400)
[2021-02-22 07:35] LABS: BAND#(MANUAL) 0.09 x10^3/uL
[2021-02-22 07:36] LABS: BANDS%(MANUAL) 22 % (0-7); EOS#(MANUAL) 0.02 x10^3/uL (0.0-0.4); EOS% (MANUAL) 4 % (1-7); LYMPH#(MANUAL) 0.04 x10^3/uL (1-3.4); LYMPHS% (MANUAL) 10 % (22-44); METAMYELOCYTES% (MANUAL) 1 % (0-1); MONOS#(MANUAL) 0.01 x10^3/uL (0.3-2.7); MONOS% (MANUAL) 2 % (2-9); SEG#(MANUAL) 0.24 x10^3/uL (1.8-6.8); SEGS% (MANUAL) 61 % (42-75)
[2021-02-22 07:38] LABS: ANISOCYTOSIS 2+; MICROCYTOSIS 1+; OVALOCYTES 1+; POLYCHROMASIA 1+
[2021-02-22 07:39] LABS: <PLATELET ESTIMATE> DECREASED; LARGE PLATELETS 1+; TARGET CELLS 1+
[2021-02-22] MEDS: SENNA/DOCUSATE TABLET PO SCH ×2 (08:36→21:00)
[2021-02-22] MEDS: MAGNESIUM OXIDE 400 MG TABLET PO SCH (08:36)
[2021-02-22] MEDS: FLUCONAZOLE 100 MG TABLET PO SCH ×2 (08:36→21:23)
[2021-02-22] MEDS: POLYETHYLENE GLYCOL 17 GM PACKET PO SCH ×3 (08:36→21:00)
[2021-02-22] MEDS: TAMSULOSIN 0.4 MG CAP.ER.24H PO SCH (08:37)
[2021-02-22] MEDS: LEVOFLOXACIN 500 MG TABLET PO SCH (08:37)
[2021-02-22] MEDS: CALCIUM/VITAMIN D3 250-125 TABLET PO SCH ×2 (08:37→21:00)
[2021-02-22] MEDS: ACYCLOVIR 200 MG CAPSULE PO SCH ×2 (08:37→21:22)
[2021-02-22] MEDS: TBO-FILGRASTIM 480 MCG/0.8 ML SQ SCH (08:58)
[2021-02-22] MEDS: ACETAMINOPHEN 325 MG TABLET PO PRN (09:55)
[2021-02-22] MEDS: DIPHENHYDRAMINE 50 MG/ML, 1ML IVPush PRN (09:55)
[2021-02-22] MEDS: ATORVASTATIN 20 MG TABLET PO SCH (21:22)
[2021-02-23] VITALS (8 sets, daily range): BP systolic 107–125; BP diastolic 59–73
[2021-02-23] MEDS: CARVEDILOL 6.25 MG TABLET PO SCH ×2 (05:40→17:11)
[2021-02-23 06:00] LABS: ANION GAP 3 mmol/L (5-15); CALCIUM 7.9 mg/dL (8.5-10.1); CHLORIDE 104 mmol/L (98-107); CREATININE 0.57 mg/dL (0.7-1.3)
[2021-02-23] MEDS: SENNA/DOCUSATE TABLET PO SCH ×2 (07:04→21:00)
[2021-02-23] MEDS: POLYETHYLENE GLYCOL 17 GM PACKET PO SCH ×3 (07:04→21:00)
[2021-02-23] MEDS: TAMSULOSIN 0.4 MG CAP.ER.24H PO SCH (08:31)
[2021-02-23] MEDS: LEVOFLOXACIN 500 MG TABLET PO SCH (08:31)
[2021-02-23] MEDS: CALCIUM/VITAMIN D3 250-125 TABLET PO SCH ×2 (08:31→21:00)
[2021-02-23] MEDS: MAGNESIUM OXIDE 400 MG TABLET PO SCH (08:31)
[2021-02-23] MEDS: TBO-FILGRASTIM 480 MCG/0.8 ML SQ SCH (08:31)
[2021-02-23] MEDS: FLUCONAZOLE 100 MG TABLET PO SCH ×2 (08:31→21:38)
[2021-02-23] MEDS: ACYCLOVIR 200 MG CAPSULE PO SCH ×2 (08:31→21:38)
[2021-02-23 09:14] LABS: MEAN CORPUSCULAR HEMOGLOBIN 32.9 pg (27.5-34.5); MEAN CORPUSCULAR HGB CONC 34.2 g/dL (33.2-36.2); MEAN PLATELET VOLUME 9.7 fL (7.4-10.4); RED BLOOD COUNT 2.42 x10^6/uL (4.38-5.82); RED CELL DISTRIBUTION WIDTH 15.2 % (9.4-14.8)
[2021-02-23 09:21] LABS: PLATELET COUNT 19 x10^3/uL (130-400)
[2021-02-23 10:17] LABS: BANDS%(MANUAL) 19 % (0-7); EOS#(MANUAL) 0.03 x10^3/uL (0.0-0.4); EOS% (MANUAL) 6 % (1-7); LYMPH#(MANUAL) 0.07 x10^3/uL (1-3.4); LYMPHS% (MANUAL) 14 % (22-44); SEG#(MANUAL) 0.31 x10^3/uL (1.8-6.8); SEGS% (MANUAL) 61 % (42-75)
[2021-02-23 10:19] LABS: ACANTHOCYTES 1+; ANISOCYTOSIS 2+; MICROCYTOSIS 1+; OVALOCYTES 1+; POLYCHROMASIA 1+; TARGET CELLS 1+
[2021-02-23 10:20] LABS: <PLATELET ESTIMATE> DECREASED
[2021-02-23 10:21] LABS: LARGE PLATELETS 1+
[2021-02-23] MEDS: DIPHENHYDRAMINE 50 MG/ML, 1ML IVPush PRN (12:45)
[2021-02-23] MEDS: ACETAMINOPHEN 325 MG TABLET PO PRN (12:47)
[2021-02-23] MEDS: ATORVASTATIN 20 MG TABLET PO SCH (21:38)
[2021-02-24 02:35] VITALS: BP 114/69
[2021-02-24] MEDS: CARVEDILOL 6.25 MG TABLET PO SCH ×2 (05:44→17:57)
[2021-02-24 06:56] VITALS: BP 120/66
[2021-02-24 07:43] LABS: MEAN CORPUSCULAR HEMOGLOBIN 32.7 pg (27.5-34.5); MEAN CORPUSCULAR HGB CONC 33.9 g/dL (33.2-36.2); MEAN PLATELET VOLUME 9.5 fL (7.4-10.4); RED BLOOD COUNT 2.34 x10^6/uL (4.38-5.82); RED CELL DISTRIBUTION WIDTH 15.2 % (9.4-14.8)
[2021-02-24 08:03] LABS: PLATELET COUNT 42 x10^3/uL (130-400)
[2021-02-24 09:23] LABS: BAND#(MANUAL) 0.14 x10^3/uL; BANDS%(MANUAL) 20 % (0-7); EOS#(MANUAL) 0.03 x10^3/uL (0.0-0.4); EOS% (MANUAL) 4 % (1-7); LYMPH#(MANUAL) 0.05 x10^3/uL (1-3.4); LYMPHS% (MANUAL) 7 % (22-44); SEG#(MANUAL) 0.48 x10^3/uL (1.8-6.8); SEGS% (MANUAL) 69 % (42-75)
[2021-02-24 09:25] LABS: ANISOCYTOSIS 1+; MICROCYTOSIS 1+; OVALOCYTES 1+; POLYCHROMASIA 1+; TARGET CELLS 1+
[2021-02-24 09:27] LABS: ACANTHOCYTES 1+
[2021-02-24 09:28] LABS: <PLATELET ESTIMATE> DECREASED; LARGE PLATELETS 1+
[2021-02-24] MEDS: MAGNESIUM OXIDE 400 MG TABLET PO SCH (10:28)
[2021-02-24] MEDS: LEVOFLOXACIN 500 MG TABLET PO SCH (10:28)
[2021-02-24] MEDS: ACYCLOVIR 200 MG CAPSULE PO SCH ×2 (10:28→21:54)
[2021-02-24] MEDS: FLUCONAZOLE 100 MG TABLET PO SCH ×2 (10:28→21:54)
[2021-02-24] MEDS: TAMSULOSIN 0.4 MG CAP.ER.24H PO SCH (10:28)
[2021-02-24] MEDS: TBO-FILGRASTIM 480 MCG/0.8 ML SQ SCH (10:29)
[2021-02-24] MEDS: CALCIUM/VITAMIN D3 250-125 TABLET PO SCH ×2 (10:29→21:00)
[2021-02-24 12:28] VITALS: BP 128/71
[2021-02-24 19:44] VITALS: BP 121/67
[2021-02-24] MEDS: ATORVASTATIN 20 MG TABLET PO SCH (21:54)
[2021-02-25 03:02] VITALS: BP 124/60
[2021-02-25] MEDS: CARVEDILOL 6.25 MG TABLET PO SCH ×2 (05:15→17:42)
[2021-02-25 05:32] LABS: MEAN CORPUSCULAR HEMOGLOBIN 32.7 pg (27.5-34.5); MEAN PLATELET VOLUME 10.4 fL (7.4-10.4); RED BLOOD COUNT 2.32 x10^6/uL (4.38-5.82)
[2021-02-25 05:37] LABS: ANION GAP 4 mmol/L (5-15); CHLORIDE 106 mmol/L (98-107); CREATININE 0.61 mg/dL (0.7-1.3)
[2021-02-25 06:00] LABS: PLATELET COUNT 31 x10^3/uL (130-400)
[2021-02-25 06:05] LABS: SEG#(MANUAL) 0.69 x10^3/uL (1.8-6.8); SEGS% (MANUAL) 86 % (42-75)
[2021-02-25 06:06] LABS: BAND#(MANUAL) 0.06 x10^3/uL; BANDS%(MANUAL) 8 % (0-7); EOS#(MANUAL) 0.02 x10^3/uL (0.0-0.4); EOS% (MANUAL) 2 % (1-7); LYMPH#(MANUAL) 0.03 x10^3/uL (1-3.4); LYMPHS% (MANUAL) 4 % (22-44)
[2021-02-25 06:09] LABS: ANISOCYTOSIS 2+
[2021-02-25 06:10] LABS: OVALOCYTES 1+; POLYCHROMASIA 1+; SCHISTOCYTES 1+; TARGET CELLS 1+
[2021-02-25 06:11] LABS: <PLATELET ESTIMATE> DECREASED; LARGE PLATELETS 1+
[2021-02-25 06:19] LABS: TOXIC GRAN 1+
[2021-02-25 07:02] VITALS: BP 107/62
[2021-02-25] MEDS: FLUCONAZOLE 100 MG TABLET PO SCH ×2 (09:03→19:45)
[2021-02-25] MEDS: TBO-FILGRASTIM 480 MCG/0.8 ML SQ SCH (09:04)
[2021-02-25] MEDS: TAMSULOSIN 0.4 MG CAP.ER.24H PO SCH (09:04)
[2021-02-25] MEDS: ACYCLOVIR 200 MG CAPSULE PO SCH ×2 (09:04→19:45)
[2021-02-25] MEDS: POLYETHYLENE GLYCOL 17 GM PACKET PO SCH ×2 (09:04→09:12)
[2021-02-25] MEDS: LEVOFLOXACIN 500 MG TABLET PO SCH (09:04)
[2021-02-25] MEDS: MAGNESIUM OXIDE 400 MG TABLET PO SCH (09:04)
[2021-02-25] MEDS: CALCIUM/VITAMIN D3 250-125 TABLET PO SCH ×2 (09:09→19:45)
[2021-02-25 13:38] VITALS: BP 115/71
[2021-02-25 19:01] VITALS: BP 132/75
[2021-02-25] MEDS: ATORVASTATIN 20 MG TABLET PO SCH (19:45)
[2021-02-26] VITALS (9 sets, daily range): BP systolic 102–125; BP diastolic 54–83
[2021-02-26] MEDS ORDERED: CATHFLO-ALTEPLASE 2 MG/2 ML CATHFLUSH ONE (02:00)
[2021-02-26] MEDS: CARVEDILOL 6.25 MG TABLET PO SCH ×2 (05:57→17:40)
[2021-02-26 06:32] LABS: MEAN CORPUSCULAR HEMOGLOBIN 32.7 pg (27.5-34.5); MEAN CORPUSCULAR HGB CONC 33.7 g/dL (33.2-36.2); RED BLOOD COUNT 2.36 x10^6/uL (4.38-5.82); RED CELL DISTRIBUTION WIDTH 15.3 % (9.4-14.8)
[2021-02-26 06:37] LABS: PLATELET COUNT 24 x10^3/uL (130-400)
[2021-02-26 06:41] LABS: ANION GAP 3 mmol/L (5-15); CALCIUM 8.2 mg/dL (8.5-10.1); CHLORIDE 104 mmol/L (98-107); CREATININE 0.62 mg/dL (0.7-1.3)
[2021-02-26 07:18] LABS: BAND#(MANUAL) 0.09 x10^3/uL; BANDS%(MANUAL) 10 % (0-7); SEG#(MANUAL) 0.68 x10^3/uL (1.8-6.8); SEGS% (MANUAL) 76 % (42-75)
[2021-02-26 07:19] LABS: BASOS#(MANUAL) 0.01 x10^3/uL (0-0.1); BASOS% (MANUAL) 1 % (0-1); EOS#(MANUAL) 0.03 x10^3/uL (0.0-0.4); EOS% (MANUAL) 3 % (1-7); LYMPH#(MANUAL) 0.05 x10^3/uL (1-3.4); LYMPHS% (MANUAL) 6 % (22-44); METAMYELOCYTES# (MANUAL) 0.02 x10^3/uL (0-0); METAMYELOCYTES% (MANUAL) 2 % (0-1); MONOS#(MANUAL) 0.02 x10^3/uL (0.3-2.7); MONOS% (MANUAL) 2 % (2-9)
[2021-02-26 07:20] LABS: <PLATELET ESTIMATE> DECREASED; ANISOCYTOSIS 2+; LARGE PLATELETS 1+; OVALOCYTES 1+; POLYCHROMASIA 1+
[2021-02-26 07:29] LABS: HYPOCHROMIA 1+
[2021-02-26] MEDS: TBO-FILGRASTIM 480 MCG/0.8 ML SQ SCH (08:40)
[2021-02-26] MEDS: CALCIUM/VITAMIN D3 250-125 TABLET PO SCH ×2 (08:41→21:36)
[2021-02-26] MEDS: MAGNESIUM OXIDE 400 MG TABLET PO SCH (08:41)
[2021-02-26] MEDS: ACYCLOVIR 200 MG CAPSULE PO SCH ×2 (08:41→21:35)
[2021-02-26] MEDS: LEVOFLOXACIN 500 MG TABLET PO SCH (08:41)
[2021-02-26] MEDS: FLUCONAZOLE 100 MG TABLET PO SCH ×2 (08:41→21:35)
[2021-02-26] MEDS: TAMSULOSIN 0.4 MG CAP.ER.24H PO SCH (08:41)
[2021-02-26] MEDS: POLYETHYLENE GLYCOL 17 GM PACKET PO SCH (08:42)
[2021-02-26] MEDS ORDERED: SODIUM CHLORIDE 0.9% 1,000ML IVBOLUS ONE (10:30)
[2021-02-26 14:25] LABS: MEAN CORPUSCULAR HEMOGLOBIN 32.8 pg (27.5-34.5); MEAN CORPUSCULAR HGB CONC 33.7 g/dL (33.2-36.2); MEAN PLATELET VOLUME 9.4 fL (7.4-10.4); RED BLOOD COUNT 2.24 x10^6/uL (4.38-5.82); RED CELL DISTRIBUTION WIDTH 15.4 % (9.4-14.8)
[2021-02-26 14:30] LABS: PLATELET COUNT 18 x10^3/uL (130-400)
[2021-02-26 15:10] LABS: SEG#(MANUAL) 0.83 x10^3/uL (1.8-6.8); SEGS% (MANUAL) 75 % (42-75)
[2021-02-26 15:11] LABS: BAND#(MANUAL) 0.17 x10^3/uL; BANDS%(MANUAL) 15 % (0-7); EOS#(MANUAL) 0.01 x10^3/uL (0.0-0.4); EOS% (MANUAL) 1 % (1-7); LYMPH#(MANUAL) 0.07 x10^3/uL (1-3.4); LYMPHS% (MANUAL) 6 % (22-44); METAMYELOCYTES# (MANUAL) 0.03 x10^3/uL (0-0); METAMYELOCYTES% (MANUAL) 3 % (0-1)
[2021-02-26 15:15] LABS: ANISOCYTOSIS 2+; HYPOCHROMIA 1+
[2021-02-26 15:16] LABS: OVALOCYTES 1+; POLYCHROMASIA 1+; TARGET CELLS 1+
[2021-02-26 15:19] LABS: TOXIC GRAN 1+
[2021-02-26 15:20] LABS: <PLATELET ESTIMATE> DECREASED; LARGE PLATELETS 1+
[2021-02-26] MEDS: DIPHENHYDRAMINE 50 MG/ML, 1ML IVPush PRN (17:20)
[2021-02-26] MEDS: ACETAMINOPHEN 325 MG TABLET PO PRN (17:21)
[2021-02-26] MEDS: ATORVASTATIN 20 MG TABLET PO SCH (21:35)
[2021-02-27 00:19] VITALS: BP 117/72
[2021-02-27] MEDS: CARVEDILOL 6.25 MG TABLET PO SCH ×2 (06:20→17:29)
[2021-02-27 06:59] LABS: MEAN CORPUSCULAR HEMOGLOBIN 32.5 pg (27.5-34.5); MEAN CORPUSCULAR HGB CONC 33.9 g/dL (33.2-36.2); PLATELET COUNT 52 x10^3/uL (130-400); RED BLOOD COUNT 2.39 x10^6/uL (4.38-5.82); RED CELL DISTRIBUTION WIDTH 15.6 % (9.4-14.8)
[2021-02-27 07:09] LABS: ANION GAP 4 mmol/L (5-15); CALCIUM 8.1 mg/dL (8.5-10.1); CHLORIDE 106 mmol/L (98-107); CREATININE 0.53 mg/dL (0.7-1.3)
[2021-02-27 07:10] VITALS: BP 125/68
[2021-02-27 07:15] LABS: BAND#(MANUAL) 0.09 x10^3/uL; BANDS%(MANUAL) 9 % (0-7); EOS#(MANUAL) 0.03 x10^3/uL (0.0-0.4); EOS% (MANUAL) 3 % (1-7); LYMPH#(MANUAL) 0.01 x10^3/uL (1-3.4); LYMPHS% (MANUAL) 1 % (22-44); SEG#(MANUAL) 0.87 x10^3/uL (1.8-6.8); SEGS% (MANUAL) 87 % (42-75)
[2021-02-27 07:18] LABS: ANISOCYTOSIS 1+; HYPOCHROMIA 1+; POLYCHROMASIA 1+; TARGET CELLS 1+
[2021-02-27 07:19] LABS: <PLATELET ESTIMATE> DECREASED; <PLT MORPHOLOGY> NORMAL PLT MORPH; OVALOCYTES 1+
[2021-02-27] MEDS: POLYETHYLENE GLYCOL 17 GM PACKET PO SCH (08:44)
[2021-02-27] MEDS: TAMSULOSIN 0.4 MG CAP.ER.24H PO SCH (08:49)
[2021-02-27] MEDS: ACYCLOVIR 200 MG CAPSULE PO SCH ×2 (08:49→20:20)
[2021-02-27] MEDS: CALCIUM/VITAMIN D3 250-125 TABLET PO SCH ×2 (08:50→20:21)
[2021-02-27] MEDS: LEVOFLOXACIN 500 MG TABLET PO SCH (08:50)
[2021-02-27] MEDS: FLUCONAZOLE 100 MG TABLET PO SCH ×2 (08:50→20:20)
[2021-02-27] MEDS: MAGNESIUM OXIDE 400 MG TABLET PO SCH (08:50)
[2021-02-27] MEDS: TBO-FILGRASTIM 480 MCG/0.8 ML SQ SCH (09:47)
[2021-02-27 13:23] VITALS: BP 123/62
[2021-02-27 17:28] VITALS: BP 132/62
[2021-02-27 18:48] VITALS: BP 110/61
[2021-02-27] MEDS: ATORVASTATIN 20 MG TABLET PO SCH (20:21)
[2021-02-28 01:13] VITALS: BP 113/55
[2021-02-28 01:29] VITALS: BP 121/75
[2021-02-28] MEDS: CARVEDILOL 6.25 MG TABLET PO SCH ×2 (06:02→17:41)
[2021-02-28 06:25] LABS: MEAN CORPUSCULAR HEMOGLOBIN 32.9 pg (27.5-34.5); MEAN CORPUSCULAR HGB CONC 34.4 g/dL (33.2-36.2); MEAN PLATELET VOLUME 10.7 fL (7.4-10.4); RED BLOOD COUNT 2.26 x10^6/uL (4.38-5.82); RED CELL DISTRIBUTION WIDTH 15.5 % (9.4-14.8)
[2021-02-28 06:27] LABS: PLATELET COUNT 37 x10^3/uL (130-400)
[2021-02-28 06:33] LABS: ANION GAP 5 mmol/L (5-15); CHLORIDE 106 mmol/L (98-107); CREATININE 0.77 mg/dL (0.7-1.3)
[2021-02-28 06:53] LABS: BAND#(MANUAL) 0.18 x10^3/uL; BANDS%(MANUAL) 18 % (0-7); EOS#(MANUAL) 0.04 x10^3/uL (0.0-0.4); EOS% (MANUAL) 4 % (1-7); LYMPH#(MANUAL) 0.04 x10^3/uL (1-3.4); LYMPHS% (MANUAL) 4 % (22-44); SEG#(MANUAL) 0.74 x10^3/uL (1.8-6.8); SEGS% (MANUAL) 74 % (42-75)
[2021-02-28 06:54] LABS: <PLATELET ESTIMATE> DECREASED; ANISOCYTOSIS 1+; HYPOCHROMIA 1+; LARGE PLATELETS 1+; OVALOCYTES 1+; POLYCHROMASIA 1+
[2021-02-28 06:55] LABS: TARGET CELLS 1+
[2021-02-28 07:09] VITALS: BP 122/76
[2021-02-28] MEDS: FLUCONAZOLE 100 MG TABLET PO SCH ×2 (08:40→22:01)
[2021-02-28] MEDS: ACYCLOVIR 200 MG CAPSULE PO SCH ×2 (08:40→22:01)
[2021-02-28] MEDS: MAGNESIUM OXIDE 400 MG TABLET PO SCH (08:40)
[2021-02-28] MEDS: LEVOFLOXACIN 500 MG TABLET PO SCH (08:41)
[2021-02-28] MEDS: CALCIUM/VITAMIN D3 250-125 TABLET PO SCH ×2 (08:41→22:03)
[2021-02-28] MEDS: POLYETHYLENE GLYCOL 17 GM PACKET PO SCH (08:41)
[2021-02-28] MEDS: TAMSULOSIN 0.4 MG CAP.ER.24H PO SCH (08:41)
[2021-02-28 09:17] VITALS: BP 103/62
[2021-02-28] MEDS: TBO-FILGRASTIM 480 MCG/0.8 ML SQ SCH (09:36)
[2021-02-28 13:07] VITALS: BP 124/74
[2021-02-28 20:38] VITALS: BP 121/73
[2021-02-28] MEDS: ATORVASTATIN 20 MG TABLET PO SCH (22:01)
[2021-03-01] VITALS (15 sets, daily range): BP systolic 83–133; BP diastolic 46–80
[2021-03-01] MEDS: CARVEDILOL 6.25 MG TABLET PO SCH ×2 (05:23→18:00)
[2021-03-01 06:00] LABS: CALCIUM 7.8 mg/dL (8.5-10.1); CHLORIDE 105 mmol/L (98-107)
[2021-03-01 06:02] LABS: ANION GAP 4 mmol/L (5-15); CREATININE 0.62 mg/dL (0.7-1.3)
[2021-03-01 06:06] LABS: MEAN CORPUSCULAR HEMOGLOBIN 32.8 pg (27.5-34.5); MEAN PLATELET VOLUME 11.5 fL (7.4-10.4); RED BLOOD COUNT 2.19 x10^6/uL (4.38-5.82); RED CELL DISTRIBUTION WIDTH 15.1 % (9.4-14.8)
[2021-03-01 06:17] LABS: PLATELET COUNT 28 x10^3/uL (130-400)
[2021-03-01 06:41] LABS: BAND#(MANUAL) 0.04 x10^3/uL; BANDS%(MANUAL) 4 % (0-7); EOS#(MANUAL) 0.06 x10^3/uL (0.0-0.4); EOS% (MANUAL) 5 % (1-7); LYMPH#(MANUAL) 0.09 x10^3/uL (1-3.4); LYMPHS% (MANUAL) 8 % (22-44); MONOS#(MANUAL) 0.01 x10^3/uL (0.3-2.7); MONOS% (MANUAL) 1 % (2-9); SEGS% (MANUAL) 82 % (42-75)
[2021-03-01 06:42] LABS: <PLATELET ESTIMATE> DECREASED; ANISOCYTOSIS 1+; HYPOCHROMIA 1+; LARGE PLATELETS 1+; OVALOCYTES 1+; POLYCHROMASIA 1+; TARGET CELLS 1+
[2021-03-01 06:45] LABS: PAPPENHEIMER BODIES 1+
[2021-03-01] MEDS: CALCIUM/VITAMIN D3 250-125 TABLET PO SCH ×2 (09:00→20:42)
[2021-03-01] MEDS: POLYETHYLENE GLYCOL 17 GM PACKET PO SCH (09:00)
[2021-03-01] MEDS ORDERED: SODIUM CHLORIDE 0.9%, 500ML IVBOLUS ONE ×2 (09:00→16:00)
--- NOTE | 2021-03-01 09:04 | NUR ---
AMNA JEREZ-Fall Risk Medications NOT present and NOT receiving anticoagulants.
[2021-03-01] MEDS: ACYCLOVIR 200 MG CAPSULE PO SCH ×2 (09:50→20:41)
[2021-03-01] MEDS: MAGNESIUM OXIDE 400 MG TABLET PO SCH (09:50)
[2021-03-01] MEDS: LEVOFLOXACIN 500 MG TABLET PO SCH (09:50)
[2021-03-01] MEDS: FLUCONAZOLE 100 MG TABLET PO SCH ×2 (09:50→20:41)
[2021-03-01] MEDS: TAMSULOSIN 0.4 MG CAP.ER.24H PO SCH (09:51)
[2021-03-01] MEDS: TBO-FILGRASTIM 480 MCG/0.8 ML SQ SCH (09:51)
[2021-03-01] MEDS: ATORVASTATIN 20 MG TABLET PO SCH (20:41)
[2021-03-02 02:30] VITALS: BP 140/76
[2021-03-02 05:54] VITALS: BP 88/51
[2021-03-02] MEDS: CARVEDILOL 6.25 MG TABLET PO SCH (06:00)
[2021-03-02 06:11] VITALS: BP 94/68
[2021-03-02 06:15] LABS: MEAN CORPUSCULAR HEMOGLOBIN 32.8 pg (27.5-34.5); MEAN CORPUSCULAR HGB CONC 33.8 g/dL (33.2-36.2); MEAN PLATELET VOLUME 11.3 fL (7.4-10.4); RED BLOOD COUNT 2.18 x10^6/uL (4.38-5.82); RED CELL DISTRIBUTION WIDTH 15.1 % (9.4-14.8)
[2021-03-02 06:17] LABS: ANION GAP 5 mmol/L (5-15); CALCIUM 8.4 mg/dL (8.5-10.1); CHLORIDE 105 mmol/L (98-107); CREATININE 0.55 mg/dL (0.7-1.3)
[2021-03-02 07:02] LABS: PLATELET COUNT 23 x10^3/uL (130-400)
[2021-03-02 07:07] LABS: SEG#(MANUAL) 0.89 x10^3/uL (1.8-6.8); SEGS% (MANUAL) 74 % (42-75)
[2021-03-02 07:08] LABS: BAND#(MANUAL) 0.23 x10^3/uL; BANDS%(MANUAL) 19 % (0-7); BASOS#(MANUAL) 0.01 x10^3/uL (0-0.1); BASOS% (MANUAL) 1 % (0-1); EOS#(MANUAL) 0.05 x10^3/uL (0.0-0.4); EOS% (MANUAL) 4 % (1-7); LYMPH#(MANUAL) 0.02 x10^3/uL (1-3.4); LYMPHS% (MANUAL) 2 % (22-44); TOXIC GRAN 1+
[2021-03-02 07:09] LABS: ANISOCYTOSIS 1+; OVALOCYTES 1+; POLYCHROMASIA 1+; TARGET CELLS 1+
[2021-03-02 07:10] LABS: PAPPENHEIMER BODIES 1+
[2021-03-02 07:11] LABS: <PLATELET ESTIMATE> DECREASED; LARGE PLATELETS 1+
[2021-03-02 07:57] VITALS: BP 137/66
[2021-03-02] MEDS: ACYCLOVIR 200 MG CAPSULE PO SCH ×2 (07:58→22:23)
[2021-03-02] MEDS: POLYETHYLENE GLYCOL 17 GM PACKET PO SCH (07:58)
[2021-03-02] MEDS: MAGNESIUM OXIDE 400 MG TABLET PO SCH (07:58)
[2021-03-02] MEDS: LEVOFLOXACIN 500 MG TABLET PO SCH (07:58)
[2021-03-02] MEDS: FLUCONAZOLE 100 MG TABLET PO SCH ×2 (07:58→22:24)
[2021-03-02] MEDS: TAMSULOSIN 0.4 MG CAP.ER.24H PO SCH (07:58)
[2021-03-02] MEDS: CALCIUM/VITAMIN D3 250-125 TABLET PO SCH ×2 (07:59→21:00)
[2021-03-02] MEDS: TBO-FILGRASTIM 480 MCG/0.8 ML SQ SCH (08:00)
[2021-03-02 13:10] VITALS: BP 117/68
[2021-03-02 18:48] VITALS: BP 116/59
[2021-03-02] MEDS: ATORVASTATIN 20 MG TABLET PO SCH (22:23)
[2021-03-03] VITALS (12 sets, daily range): BP systolic 77–132; BP diastolic 43–82
[2021-03-03 06:38] LABS: MEAN CORPUSCULAR HEMOGLOBIN 33.7 pg (27.5-34.5); MEAN CORPUSCULAR HGB CONC 34.2 g/dL (33.2-36.2); MEAN PLATELET VOLUME 10.3 fL (7.4-10.4); RED CELL DISTRIBUTION WIDTH 15.3 % (9.4-14.8)
[2021-03-03 06:41] LABS: PLATELET COUNT 17 x10^3/uL (130-400)
[2021-03-03 06:49] LABS: ANION GAP 3 mmol/L (5-15); CALCIUM 7.9 mg/dL (8.5-10.1); CHLORIDE 105 mmol/L (98-107); CREATININE 0.64 mg/dL (0.7-1.3)
[2021-03-03 07:49] LABS: BAND#(MANUAL) 0.01 x10^3/uL; BANDS%(MANUAL) 1 % (0-7); EOS#(MANUAL) 0.01 x10^3/uL (0.0-0.4); EOS% (MANUAL) 1 % (1-7); LYMPH#(MANUAL) 0.07 x10^3/uL (1-3.4); LYMPHS% (MANUAL) 6 % (22-44); METAMYELOCYTES# (MANUAL) 0.03 x10^3/uL (0-0); METAMYELOCYTES% (MANUAL) 3 % (0-1); MONOS#(MANUAL) 0.02 x10^3/uL (0.3-2.7); MONOS% (MANUAL) 2 % (2-9); MYELOCYTES# (MANUAL) 0.01 x10^3/uL (0-0); MYELOCYTES% (MANUAL) 1 % (0-0); SEG#(MANUAL) 0.95 x10^3/uL (1.8-6.8); SEGS% (MANUAL) 86 % (42-75)
[2021-03-03 07:50] LABS: ANISOCYTOSIS 1+; HYPOCHROMIA 1+; OVALOCYTES 1+; POLYCHROMASIA 1+; TARGET CELLS 1+
[2021-03-03 07:51] LABS: <PLATELET ESTIMATE> DECREASED; PAPPENHEIMER BODIES 1+
[2021-03-03 07:52] LABS: LARGE PLATELETS 1+
[2021-03-03] MEDS: ACETAMINOPHEN 325 MG TABLET PO PRN (08:00)
[2021-03-03] MEDS: FLUCONAZOLE 100 MG TABLET PO SCH ×2 (08:02→20:52)
[2021-03-03] MEDS: LEVOFLOXACIN 500 MG TABLET PO SCH (08:03)
[2021-03-03] MEDS: CALCIUM/VITAMIN D3 250-125 TABLET PO SCH ×2 (08:03→20:52)
[2021-03-03] MEDS: ACYCLOVIR 200 MG CAPSULE PO SCH ×2 (08:03→20:52)
[2021-03-03] MEDS: MAGNESIUM OXIDE 400 MG TABLET PO SCH (08:03)
[2021-03-03] MEDS: POLYETHYLENE GLYCOL 17 GM PACKET PO SCH (08:03)
[2021-03-03] MEDS: TAMSULOSIN 0.4 MG CAP.ER.24H PO SCH (08:03)
[2021-03-03] MEDS: TBO-FILGRASTIM 480 MCG/0.8 ML SQ SCH (09:56)
[2021-03-03] MEDS: MIDODRINE 5 MG TABLET PO SCH ×3 (10:31→20:52)
[2021-03-03] MEDS: ATORVASTATIN 20 MG TABLET PO SCH (20:52)
[2021-03-04 05:14] VITALS: BP 91/53
[2021-03-04 06:15] LABS: MEAN CORPUSCULAR HEMOGLOBIN 33.5 pg (27.5-34.5); MEAN CORPUSCULAR HGB CONC 34.9 g/dL (33.2-36.2); MEAN PLATELET VOLUME 9.7 fL (7.4-10.4); RED BLOOD COUNT 2.32 x10^6/uL (4.38-5.82); RED CELL DISTRIBUTION WIDTH 15.1 % (9.4-14.8)
[2021-03-04 06:16] VITALS: BP 101/50
[2021-03-04 06:18] LABS: PLATELET COUNT 49 x10^3/uL (130-400)
[2021-03-04 06:46] LABS: BAND#(MANUAL) 0.05 x10^3/uL; BANDS%(MANUAL) 4 % (0-7); EOS#(MANUAL) 0.02 x10^3/uL (0.0-0.4); EOS% (MANUAL) 2 % (1-7); LYMPH#(MANUAL) 0.05 x10^3/uL (1-3.4); LYMPHS% (MANUAL) 4 % (22-44); SEG#(MANUAL) 1.08 x10^3/uL (1.8-6.8); SEGS% (MANUAL) 90 % (42-75)
[2021-03-04 06:47] LABS: ANISOCYTOSIS 1+; HYPOCHROMIA 1+; OVALOCYTES 1+; POLYCHROMASIA 1+; TARGET CELLS 1+
[2021-03-04 06:48] LABS: PAPPENHEIMER BODIES 1+
[2021-03-04 06:50] LABS: <PLATELET ESTIMATE> DECREASED; LARGE PLATELETS 1+
[2021-03-04 07:16] VITALS: BP 95/53
[2021-03-04] MEDS: CALCIUM/VITAMIN D3 250-125 TABLET PO SCH (08:25)
[2021-03-04] MEDS: LEVOFLOXACIN 500 MG TABLET PO SCH (08:26)
[2021-03-04] MEDS: FLUCONAZOLE 100 MG TABLET PO SCH (08:26)
[2021-03-04] MEDS: ACYCLOVIR 200 MG CAPSULE PO SCH (08:26)
[2021-03-04] MEDS: MIDODRINE 5 MG TABLET PO SCH ×3 (08:26→17:24)
[2021-03-04] MEDS: TAMSULOSIN 0.4 MG CAP.ER.24H PO SCH (08:27)
[2021-03-04] MEDS: POLYETHYLENE GLYCOL 17 GM PACKET PO SCH (08:27)
[2021-03-04] MEDS: TBO-FILGRASTIM 480 MCG/0.8 ML SQ SCH (08:27)
[2021-03-04] MEDS: MAGNESIUM OXIDE 400 MG TABLET PO SCH (08:27)
[2021-03-04 13:31] VITALS: BP 130/71
[2021-03-04] MEDS ORDERED: TAMS-11 PO (15:22)
[2021-03-04] MEDS ORDERED: MAGN400T50 PO (15:22)
[2021-03-04] MEDS ORDERED: MIDO5TAB9 PO (15:22)
[2021-03-04] MEDS ORDERED: LEVO500T8 PO (15:22)
[2021-03-04] MEDS ORDERED: FLUC100T PO (15:22)
[2021-03-04] MEDS ORDERED: ACYC200C13 PO (15:22)
== END 2021-03-04 17:41 | disposition home health service (06) | DRG 840 ==
LOC: ED 16:19 → EDIP 16:46 → SUATTDRO 16:47 → 4NW 18:10 → 5SO 01-28 20:21 → 4NW 01-30 14:28
PROVIDERS: ADMIT Internal Medicine; ATTEND Internal Medicine
PROC: 07DR3ZX Extraction of Iliac Bone Marrow, Percutaneous Approach, Diagnostic (ICD-10-PCS; 2021-01-18)
PROC: 30233N1 Transfusion of Nonautologous Red Blood Cells into Peripheral Vein, Percutaneous Approach (ICD-10-PCS; principal; 2021-01-19)
PROC: 02HV33Z Insertion of Infusion Device into Superior Vena Cava, Percutaneous Approach (ICD-10-PCS; 2021-01-23)
PROC: B548ZZA Ultrasonography of Superior Vena Cava, Guidance (ICD-10-PCS; 2021-01-23)
PROC: B5181ZA Fluoroscopy of Superior Vena Cava using Low Osmolar Contrast, Guidance (ICD-10-PCS; 2021-01-23)
PROC: 30233R1 Transfusion of Nonautologous Platelets into Peripheral Vein, Percutaneous Approach (ICD-10-PCS; 2021-01-30)
PROC: 02HV33Z Insertion of Infusion Device into Superior Vena Cava, Percutaneous Approach (ICD-10-PCS; 2021-02-26)
PROC: B548ZZA Ultrasonography of Superior Vena Cava, Guidance (ICD-10-PCS; 2021-02-26)
PROC: B5181ZA Fluoroscopy of Superior Vena Cava using Low Osmolar Contrast, Guidance (ICD-10-PCS; 2021-02-26)
DX: C91.42 Hairy cell leukemia, in relapse (principal); E43 Unspecified severe protein-calorie malnutrition; I47.1 Supraventricular tachycardia; N39.0 Urinary tract infection, site not specified; C83.07 Small cell B-cell lymphoma, spleen; E87.1 Hypo-osmolality and hyponatremia; K92.1 Melena; Z51.5 Encounter for palliative care; Z53.20 Procedure and treatment not carried out because of patient's decision for unspecified reasons; Z66 Do not resuscitate; D63.0 Anemia in neoplastic disease; I45.10 Unspecified right bundle-branch block; D53.9 Nutritional anemia, unspecified; D70.9 Neutropenia, unspecified; E11.9 Type 2 diabetes mellitus without complications; E78.5 Hyperlipidemia, unspecified; E83.51 Hypocalcemia; E87.6 Hypokalemia; I48.91 Unspecified atrial fibrillation; R33.9 Retention of urine, unspecified; R54 Age-related physical debility; Z60.2 Problems related to living alone; K59.00 Constipation, unspecified; R50.81 Fever presenting with conditions classified elsewhere; Z79.899 Other long term (current) drug therapy; Z90.81 Acquired absence of spleen; Z92.21 Personal history of antineoplastic chemotherapy; Z88.2 Allergy status to sulfonamides; Z68.20 Body mass index [BMI] 20.0-20.9, adult
CPT/HCPCS: 36415; 36430; 36573; 70450; 71045; 80048; 80053; 80069; 80074; 80202; 81001; 82272; 82330; 82607; 82728; 82962; 83540; 83550; 83605; 83615; 83735; 84100; 84484; 84550; 85025; 85045; 85610; 85730; 86850; 86900; 86923; 87040; 87086; 87806; 93005; 99285; G0378; J2543; J2997; J3370; J3480; J9065; Q0162; C1751; G0475; J1200; J1447; J2765; J3475; J7030; J7040; J7050; P9037; P9040